=== PATIENT | female | born 1955 | race Caucasian/White ===

== ENCOUNTER 2019-11-22 11:32 | Emergency (ER) | payer MEDICARE, SELFPAY ==
--- NOTE | ~2019-11-22 | XR_ITS ---
EXAMINATION: XR femur LT min 2V EXAM DATE: 11/22/2019 13:26 INDICATION: Abnormal x-ray. TECHNIQUE: Left femur frontal and lateral projections of the proximal aspect, frontal and lateral pro jections of the lower aspect for review. There is no prior study for comparison. FINDINGS: There is chronic mildly expansile region in the midshaft of the left femur with regions o f sclerosis and some other regions of decreased density. This has nonaggressive appearance, but there is a bowed appearance to this leg likely result of chronic remodeling. There are no acute fractures identified. The soft tissue is unremarkable. IMPRESSION: Chronic left femoral mid shaft region with some bowing of the shaft, could be Paget's di sease and/or chronic bone infarction. Nonaggressive features. Reviewed, dictated and finalized at location A. EXAMINER IMPRESSION: Chronic left femoral mid shaft region with some bowing of the shaf t, could be Paget's disease and/or chronic bone infarction. Nonaggressive featu res.
--- NOTE | ~2019-11-22 | XR_ITS ---
XR ribs RT 2V DATE: 11/22/2019 12:35 INDICATION: Right rib pain TECHNIQUE: 3 views of right ribs COMPARISON: 11/06/2018 AP chest FINDINGS: No right rib fracture or bone destruction is evident. There is diffuse idiopathic skeletal hyperostosis of the thoracic spine. Diffuse osteopenia. IMPRESSION: Osteopenia Reviewed, dictated and finalized at location B. CASE MANAGEMENT IMPRESSION: Osteopenia
--- NOTE | ~2019-11-22 | XR_ITS ---
EXAMINATION: XR knee LT 2V EXAM DATE: 11/22/2019 12:35 INDICATION: No known recent injury provided at this time. Pain of the left knee. TECHNIQUE: Three projections of the left knee. There is no prior study for comparison. FINDINGS: No evidence osteochondral defect or joint body in the left knee joint. Bones are osteope yessi. Please note that osteopenia limits sensitivity for detecting fractures by radiographs. There is no joint effusion. Incompletely imaged region of sclerosis in the mid femur, could be a bone infarction but and/or Paget 's disease. Consider left femur x-ray for further evaluation. There is moderate left knee primary os teoarthritis. There may be some meniscal chondrocalcinosis. Scattered vascular calcifications. IMPRESSION: 1. Moderate left knee osteoarthritis. 2. Incompletely imaged left mid femoral expansile and mixed sclerotic lytic region. If patient had i ntramedullary yusra/gamma nail which was removed, could potentially explain appearance. Otherwise could be Paget's disease and/or bone infarction. Consider femur x-ray if patient has not had orthopedic joshua rdware. Reviewed, dictated and finalized at location A. RAL ECONOMIST IMPRESSION: 1. Moderate left knee osteoarthritis. 2. Incompletely imaged left mid femoral expansile and mixed sclerotic lytic re gion. If patient had intramedullary yusra/gamma nail which was removed, could pot entially explain appearance. Otherwise could be Paget's disease and/or bone inf arction. Consider femur x-ray if patient has not had orthopedic hardware.
--- NOTE | ~2019-11-22 | XR_ITS ---
EXAMINATION: XR hip LT 2V w AP pelvis EXAM DATE: 11/22/2019 12:35 INDICATION: No known recent injury provided at this time. Pain of the left hip. TECHNIQUE: Left hip frontal, crosstable lateral and 'frog-leg' projections for interpretation. Fronta l projection pelvis. Comparison is made to prior examination from 05/07/2015. FINDINGS: There is moderate to severe left hip osteoarthritis, moderate right hip osteoarthritis. Par tially imaged expansile mixed sclerotic and lytic region, could be Paget's disease and/or bone infarc t. Incompletely imaged. There are no acute fractures identified. There are arterial calcifications, a rteriosclerosis. IMPRESSION: 1. Moderate to severe left hip osteoarthritis. 2. Incompletely imaged left mid femoral expansile and mixed sclerotic lytic region. If patient had i ntramedullary yusra/gamma nail which was removed, could potentially explain appearance. Otherwise could be Paget's disease and/or bone infarction. Consider femur x-ray. Reviewed, dictated and finalized at location A. AL WORKER AIDE IMPRESSION: 1. Moderate to severe left hip osteoarthritis. 2. Incompletely imaged left mid femoral expansile and mixed sclerotic lytic re gion. If patient had intramedullary yusra/gamma nail which was removed, could pot entially explain appearance. Otherwise could be Paget's disease and/or bone inf arction. Consider femur x-ray.
[2019-11-22 11:50] VITALS: BP 149/66; PULSE 65; RESP 18; TEMP 36.7; O2SAT 95
[2019-11-22] MEDS: KETOROLAC 30 MG/ML VIAL (*BKC) IV PUSH (12:06)
--- NOTE | 2019-11-22 12:54 | ED.FALL ---
HPI - Fall General Chief Complaint: Fall Stated Complaint: ambulance Source: patient and EMS Limitations: no limitations History of Present Illness HPI Narrative: a 64-year-old female that presents after she fell down a couple of steps after she slipped on a patch of ice causing pain to her right rib area and to her left knee and hip. The patient was brought in by EMS currently rates her pain a 5/10, with no bruising or swelling noted no loss of consciousness no neck pain has good range of motion in her neck has good range of motion in her left knee and left hip although tender with palpation. There is no dizziness no shortness of breath no chest pain. MD complaint: fall Onset (ago): hour(s) Fall from: standing and down stairs (#) (2) Fall witnessed: no Place fall occurred: home Loss of consciousness: none Prolonged down time: no Symptoms prior to fall: other (slipped on patch of ICE) Location of injury: chest Location of injury - extremities: Left: knee Severity: moderate Severity scale (1-10): 5 Quality: dull Associated symptoms (after fall): denies Related Data Home Medications Medication Instructions Recorded Confirmed aspirin 81 mg tablet,delayed 81 mg PO DAILY 11/13/19 release carvedilol 3.125 mg tablet 3.125 mg PO Q12H 11/13/19 cilostazol 50 mg tablet 50 mg PO BID 11/13/19 gabapentin 300 mg capsule 300 mg PO DAILY 11/13/19 insulin glargine 100 unit/mL 40 unit SUB-Q .hs ml 11/13/19 subcutaneous solution isosorbide mononitrate 30 mg 30 mg PO DAILY 11/13/19 tablet,extended release 24 hr metformin 500 mg tablet 1,000 mg PO DAILY tablet 11/13/19 mirabegron 25 mg tablet,extended 25 mg PO DAILY 11/13/19 release 24 hr pantoprazole 40 mg granules 40 mg PO DAILY 11/13/19 delayed-release for susp in packet rosuvastatin 20 mg tablet 20 mg PO DAILY 11/13/19 venlafaxine 75 mg capsule,extended 150 mg PO TID cap 11/13/19 release 24 hr Allergies Allergy/AdvReac Type Severity Reaction Status Date / Time nitroglycerin [Nitromist] Allergy Intermediate unknown Verified 11/13/19 13:50 Review of Systems Review of Systems: All systems reviewed & are unremarkable except as noted in HPI and below PMFSH Past Medical History Medical History Anemia Bipolar disorder with depression CAD (coronary artery disease) Chronic GERD Chronic low back pain Encounter for removal of skin lesion Female stress incontinence Hyperlipidemia associated with type 2 diabetes mellitus Hypertension associated with diabetes Low bone mass Major depression, recurrent Major depressive episode Obesity, Class I, BMI 30-34.9 Type 2 diabetes mellitus Surgical History Surgical History History of appendectomy History of hysterectomy History of knee replacement History of repair of rotator cuff History of tonsillectomy Family History Family History Sister Family history of lymphoma Mother Hypertension Family history of type 2 diabetes mellitus Family history of coronary artery disease Mother Hypertension Family history of coronary artery disease Family history of type 2 diabetes mellitus Father Hypertension Family history of coronary artery disease Sister Family history of lymphoma Father Family history of coronary artery disease Hypertension Social History Social History Smoking status: Never smoker Alcohol intake: never Substance use: former Substance use type: crack/cocaine Other substance usage details: for about 1 year, patient quit on her own back in 2013 Additional living arrangements comments: Lives with adult Niece and her family Additional occupation/education comments: Disabled Gender identity (if verbalized by the patient): Female Spiritual care concern
[2019-11-22 14:05] VITALS: BP 160/70; PULSE 64; RESP 18; O2SAT 100
== END 2019-11-22 14:05 | disposition home or self-care (01) ==
PROVIDERS: Emergency Provider Emergency Medicine
DX: S86.912A Strain of unspecified muscle(s) and tendon(s) at lower leg level, left leg, initial encounter (principal); S23.41XA Sprain of ribs, initial encounter; I25.10 Atherosclerotic heart disease of native coronary artery without angina pectoris; K21.9 Gastro-esophageal reflux disease without esophagitis; E78.5 Hyperlipidemia, unspecified; I10 Essential (primary) hypertension; E11.9 Type 2 diabetes mellitus without complications; W10.9XXA Fall (on) (from) unspecified stairs and steps, initial encounter
CPT/HCPCS: 71100; 73502; 73521; 73552; 73560; 96374; 99282; 99284; J1885

== ENCOUNTER 2019-12-05 09:10 | Outpatient (CLI) | payer MEDICARE, SELFPAY ==
--- NOTE | ~2019-12-05 | CT_ITS ---
EXAMINATION: CT chest abdomen pelvis wo con EXAM DATE: 12/05/2019 09:37 INDICATION: Right-sided lateral chest pain and right upper abdominal pain. Bladder pain. Microscopic hematuria. TECHNIQUE: Spiral CT of the chest, abdomen and pelvis was performed without contrast. Axial, mcgee l and sagittal images were reviewed. Coronal maximum intensity pixel images of chest reviewed. The dose-length product (DLP) for this examination was 329.58 mGy-cm. The exposure was tailored accordin g to patient size (auto mA exposure control), and iterative reconstruction (ASIR) was used as additio nal dose reduction technique. Comparison is made to prior examination from 08/07/2019. FINDINGS: CHEST: The lungs are clear. There are no pleural or pericardial effusions. Tracheobronchial tree is patent. There is no mediastinal, hilar or axillary lymphadenopathy. There is no pneumothorax. Heart normal in size. There are likely coronary arterial stent or stents. Correlate with prior c ardiac history. ABDOMEN PELVIS: Liver and splenic granulomas. There is low-density left adrenal gland lesion measurin g 1.6 cm, adenoma. There is a subcentimeter right adrenal gland adenoma. Gallbladder is unremarkable. No biliary obstruction. There is bilateral renal arterial sclerosis. Difficult to completely exclu de punctate nephrolithiasis. No ureteral stones or hydronephrosis. The uterus is not identified and has likely been surgically resected. The bladder is unremarkable. There is no retroperitoneal or pe lvic lymphadenopathy. There is mild to moderate scattered arteriosclerotic disease. The appendix is not positively visualized. There is no pericecal inflammatory change to suggest appe ndicitis. There is moderate sigmoid predominant colonic diverticulosis. There is no adjacent inflamm atory change to suggest diverticulitis. The stomach and small bowel are unremarkable. There is expec marina amount of colonic stool. No free intraperitoneal gas. There are no osteoblastic or osteolytic lesions identified. IMPRESSION: 1. No acute thoracic or abdominal findings. 2. Colonic diverticulosis. 3. Adrenal adenomas. Reviewed, dictated and finalized at location A. FACTURING ASSEMBLER
== END 2019-12-05 09:11 | disposition home or self-care (01) ==
PROVIDERS: PCP Nurse Practitioner Family; Visit Provider Nurse Practitioner Family
DX: R31.29 Other microscopic hematuria (principal)
CPT/HCPCS: 71250; 74176

== ENCOUNTER 2020-07-09 13:37 | Outpatient (CLI) | payer MEDICARE, SELFPAY ==
[2020-07-09 13:54] LABS: Hematocrit 40.8 % (35.0-42.0); Hemoglobin 13.4 g/dL (11.7-13.8); Mean Corpuscular HGB Conc 32.8 g/dL (32.0-36.0); Mean Corpuscular Hemoglobin 30.5 pg (27.0-31.0); Mean Corpuscular Volume 92.9 fL (78.0-102.0); Mean Platelet Volume 11.5 fl (9.2-11.8); Platelet Count Result 212 K/mm3 (150-420); Red Blood Count 4.39 M/mm3 (4.20-5.40); Red Cell Distribution Width 12.4 % (11.6-14.4); White Blood Count 7.6 K/mm3 (4.8-10.8)
[2020-07-09 14:23] LABS: Hemoglobin A1C 6.4 % (<5.7)
[2020-07-09 14:34] LABS: Alanine Aminotransferase 49 U/L (14-59); Albumin Level 3.9 g/dL (3.4-5.0); Alkaline Phosphatase 157 U/L (46-116); Anion Gap 10 mmol/L (8-16); Aspartate Amino Transferase 24 U/L (15-37); Bilirubin,Total 0.5 mg/dL (0.00-1.00); Blood Urea Nitrogen 19 mg/dL (7-18); Calcium 8.9 mg/dL (8.5-10.1); Carbon Dioxide 24 mmol/L (21-32); Chloride 104 mmol/L (98-108); Cholesterol 131 mg/dL (0-200); Estimated Glomerular Filt Rate 33; Glucose 196 mg/dL (70-99); HDL Direct 92 mg/dL (40-60); LDL Cholesterol Calculated 30 mg/dL (<130); Osmolality Calculated 293 mOsm/kg (285-295); Potassium 4.1 mmol/L (3.5-5.1); Sodium 138 mmol/L (136-145); Total Protein 7.2 g/dL (6.4-8.2); Triglycerides 44 mg/dL (0-150)
== END 2020-07-09 13:38 | disposition home or self-care (01) ==
PROVIDERS: PCP Nurse Practitioner Family; Visit Provider Nurse Practitioner Family
DX: E11.59 Type 2 diabetes mellitus with other circulatory complications (principal); I10 Essential (primary) hypertension; D64.9 Anemia, unspecified
CPT/HCPCS: 36415; 80053; 80061; 83036; 85027

== ENCOUNTER 2020-08-12 10:10 | Outpatient (RCR) | payer MEDICARE, SELFPAY ==
--- NOTE | 2020-08-12 11:06 | PTOPEVAL ---
Thank you for referring Federica Bradford to [facility].? The patient is scheduled to be seen for therapy? ____x/week for ___ weeks. Please review, sign, date and return this plan of care DAVE. I agree with and certify that the following plan of care is medically necessary. Referring Physician Date Admitting Provider: Attending Provider: Stephanie Castaneda, COMMUNICATIONS FIELD TECHNICIAN Referring Provider: *PT Outpatient Evaluation Start: 08/12/20 10:10 Freq: Status: Active Protocol: Document 08/12/20 10:15 [facility] (Rec: 08/12/20 11:02 [facility] [id number]) Therapy Assessment Status Assessment Status Assessment Status Evaluation Outpatient Past Medical History Past Medical History Source of Past Medical History Patient Other Source of Past Medical History see patient intake form Cardiovascular History Hx Coronary Stent Yes Hx Hypercholesterolemia Yes Hx Hypertension Yes Hx Myocardial Infarction Yes Musculoskeletal History Hx Joint Replacement Yes: right knee Endocrine History Hx Diabetes Yes HEENT History Hx Tonsillectomy Yes Reproductive History Hx Hysterectomy Yes Hx Post Menopausal Yes Evaluation Information Problem Diagnosis s/p L TKA Onset 08/04/20 Additional Evaluation Detail LEFS = 91% functionally declined Subjective Information patient reports she underwent Query Text:As Reported By Patient/ L TKA on 08/04/20. she reports Family she has had the R one replaced in the past. she reports she was in the hospital until tuesday evening , then went back tuesday evening due to a fall at home. she then stayed in the hospital for another few days. she reports her fall caused some bleeding at the sight of the surgery. she reports she fell with her walker. she reports she did not have home health. she reports she still has a lot of pain/soreness in the L knee. she reports she returns to the MD this tuesday for staple removal. Prior Level of Function Comments Additional Prior Level of Function patient reports her L knee was Comments full of arthritis and she had a shifted knee cap. she reports
--- NOTE | 2020-09-05 11:36 | PTOPEVAL ---
Thank you for referring Federica Bradford to [facility] [place].? The patient is scheduled to be seen for therapy? ____x/week for ___ weeks. Please review, sign, date and return this plan of care DAVE. I agree with and certify that the following plan of care is medically necessary. Referring Physician Date Admitting Provider: Attending Provider: Stephanie Castaneda, HYDRAULIC LIFT DRIVER Referring Provider: *PT Outpatient Evaluation Start: 08/12/20 10:10 Freq: Status: Active Protocol: Document 09/05/20 10:50 [facility] (Rec: 09/05/20 11:35 [facility] [id number]) Therapy Assessment Status Assessment Status Assessment Status Re-evaluation Outpatient Past Medical History Past Medical History Source of Past Medical History Patient Other Source of Past Medical History see patient intake form Cardiovascular History Hx Coronary Stent Yes Hx Hypercholesterolemia Yes Hx Hypertension Yes Hx Myocardial Infarction Yes Musculoskeletal History Hx Joint Replacement Yes: right knee Endocrine History Hx Diabetes Yes HEENT History Hx Tonsillectomy Yes Reproductive History Hx Hysterectomy Yes Hx Post Menopausal Yes Evaluation Information Problem Diagnosis s/p L TKA Subjective Information patient reports she still joshua Query Text:As Reported By Patient/ pain in the L knee. she also Family reports she is still tight in the L knee in extension. however, she reports at times she is able to get it completely straight at home. Pain Assessment Timing of Pain Assessment Timing of Pain Assessment Assessment Pain Scale Pain Scale Used Numeric (1 - 10) Self Report Pain Assessment Left Knee(s) Reported Pain Level 4 Greatest Pain Intensity 5 Pain Score Pain Score 4: Self Report Interventions Used Interventions Used By Clinicians Activity or ADL's,Compression Pump,Elevation,Exercise,Ice Lower Extremity Range of Motion General Lower Extremity Range of Motion Gross Lower Extremity Range of Motion supine L knee arom extension = Comments -15 degrees. supine L knee prom extension = -11 degrees. supine L knee arom flexion = 125 degrees. Lower Extremity Muscle Strength Testing Hip Strength Left Hip Flexion Strength 4- Good - Right Hip Flexion Strength 4 Good Knee Strength Left Knee Flexion Strength 4+ Good + Knee Extension Strength 4 Good Right Knee Flexion Strength
--- NOTE | 2020-09-10 06:47 | PCPTNOTE ---
Mrs. Bradford has attended 13 treatment sessions. In this time she has demonstrated excellent progress in regards to function and strength. Her left knee flexion angle has improved to 130 degrees. She continues to have difficulty with attaining adequate knee extension and remains with a 12 degree contracture post Rx on this date. Exercise in the clinic has consisted of aggressive passive stretching and mobilization techniques promoting knee extension, as well as static progressive techniques such as prone hangs and heel prop for duration of 10 minutes of greater. The importance of daily performance of her HEP has been stressed to the pt., especially exercise that promotes extension of the left knee. Despite thoroughly educating pt., she continues to report lack of compliance with all extension exercise at home due to pain. She currently has 5 remianing sessions on her POC and reccommend continued treatment focusing on aggressive manual techniques and exercise promoting improved strength and mobility of the left knee. Thank you for the referral of Mrs. Bradford and please call me with any questions. Jeremiah Rosado, MPT
== END 2020-10-21 08:55 | disposition home or self-care (01) ==
LOC: CHSPT 10:10
PROVIDERS: PCP Family Medicine; Visit Provider Nurse Practitioner Family
DX: M17.12 Unilateral primary osteoarthritis, left knee (principal)
CPT/HCPCS: 97016; 97110; 97140; 97161; 97530

== ENCOUNTER 2021-06-25 14:35 | Outpatient (CLI) | payer MEDICARE, SELFPAY ==
[2021-06-25 14:58] LABS: Basophils Absolute Auto 0.04 K/mm3 (0.00-0.10); Basophils Percent Auto 0.6 % (0.0-1.0); Eosinophils Absolute Auto 0.04 K/mm3 (0.02-0.50); Eosinophils Percent Auto 0.6 % (1.0-6.0); Hematocrit 43.4 % (35.0-42.0); Immature Granulocyte Absolute 0.03 K/mm3 (0.00-0.00); Immature Granulocyte Percent A 0.4 % (0.0-0.0); Lymphocytes Absolute Auto 1.11 K/mm3 (1.10-4.50); Lymphocytes Percent Auto 16.2 % (18.0-42.0); Mean Corpuscular HGB Conc 34.6 g/dL (32.0-36.0); Mean Corpuscular Hemoglobin 30.1 pg (27.0-31.0); Mean Platelet Volume 11.4 fl (9.2-11.8); Monocytes Absolute Auto 0.48 K/mm3 (0.10-0.90); Neutrophils Absolute Auto 5.2 K/mm3 (1.7-7.2); Neutrophils Percent Auto 75.2 % (50.0-70.0); Platelet Count Result 215 K/mm3 (150-420); Red Blood Count 4.99 M/mm3 (4.20-5.40); White Blood Count 6.9 K/mm3 (4.8-10.8)
[2021-06-25 15:38] LABS: Alanine Aminotransferase 32 U/L (14-59); Albumin Level 3.8 g/dL (3.4-5.0); Alkaline Phosphatase 86 U/L (46-116); Anion Gap 10 mmol/L (8-16); Aspartate Amino Transferase 19 U/L (15-37); Bilirubin,Total 0.6 mg/dL (0.00-1.00); Blood Urea Nitrogen 13 mg/dL (7-18); Calcium 9.2 mg/dL (8.5-10.1); Carbon Dioxide 28 mmol/L (21-32); Chloride 103 mmol/L (98-108); Cholesterol 150 mg/dL (0-200); Estimated Glomerular Filt Rate 49; Glucose 161 mg/dL (70-99); HDL Direct 65 mg/dL (40-60); LDL Cholesterol Calculated 53 mg/dL (<130); Osmolality Calculated 295 mOsm/kg (285-295); Potassium 4.3 mmol/L (3.5-5.1); Sodium 141 mmol/L (136-145); Total Protein 7.1 g/dL (6.4-8.2); Triglycerides 158 mg/dL (0-150)
[2021-06-25 17:09] LABS: CRP < 0.2 mg/dL (0.0-0.9)
== END 2021-06-25 14:36 | disposition home or self-care (01) ==
PROVIDERS: PCP Nurse Practitioner Family; Visit Provider Nurse Practitioner Family
DX: E11.69 Type 2 diabetes mellitus with other specified complication (principal); E78.5 Hyperlipidemia, unspecified; I10 Essential (primary) hypertension; Z00.00 Encounter for general adult medical examination without abnormal findings; E11.59 Type 2 diabetes mellitus with other circulatory complications; M94.0 Chondrocostal junction syndrome [Tietze]
CPT/HCPCS: 36415; 80053; 80061; 83036; 85025; 86140

== ENCOUNTER 2021-07-14 12:59 | Outpatient (RCR) | payer MEDICARE, SELFPAY ==
--- NOTE | 2021-07-14 14:01 | PTOPEVAL ---
Thank you for referring Federica Bradford to [facility].? The patient is scheduled to be seen for therapy? ____x/week for ___ weeks. Please review, sign, date and return this plan of care DAVE. I agree with and certify that the following plan of care is medically necessary. Referring Physician Date Admitting Provider: Attending Provider: Marilynn Ramírez NP Referring Provider: *PT Outpatient Evaluation Start: 07/14/21 12:41 Freq: Status: Active Protocol: Document 07/14/21 12:41 [facility] (Rec: 07/14/21 14:01 [facility] [id number]) Therapy Assessment Status Assessment Status Assessment Status Evaluation Outpatient Past Medical History Cardiovascular History Hx Coronary Stent Yes Hx Hypercholesterolemia Yes Hx Hypertension Yes Hx Myocardial Infarction Yes Musculoskeletal History Hx Joint Replacement Yes: right knee Endocrine History Hx Diabetes Yes HEENT History Hx Tonsillectomy Yes Reproductive History Hx Post Menopausal Yes Evaluation Information Problem Diagnosis breast/arm pain Onset 06/23/21 Subjective Information Patient states that she was Query Text:As Reported By Patient/ laying down and got a shooting Family pain from the left side of the chest to the right and into the arm. Patient states the pain has been constant ever since. She is unable to lay on the R side at this time . She states that the muscle relaxers do not help, only the lidocaine patches work. She states when she takes off the patches the area is really sore. Patient states that she has difficulty with lifting items, writing, and doing anything with her arm. Patient denies radicular symptoms, but states that the pain on the underarm is a scratching sensation. Patient states that her goal for therapy is to get ride of the pain. Prior Level of Function Activity Level (Last 3 Months) Occupation retired Hand Dominance Right Activity of Daily Living Ability Independent Indoor/Home Mobility Independent Community Mobility Independent Stairs Ability Independent
--- NOTE | 2021-08-14 15:48 | PTOPEVAL ---
Thank you for referring Federica Bradford to [facility].? The patient is scheduled to be seen for therapy? ____x/week for ___ weeks. Please review, sign, date and return this plan of care DAVE. I agree with and certify that the following plan of care is medically necessary. Referring Physician Date Admitting Provider: Attending Provider: Marilynn Ramírez NP Referring Provider: *PT Outpatient Evaluation Start: 07/14/21 12:41 Freq: Status: Active Protocol: Document 08/14/21 14:45 ACR (Rec: 08/14/21 15:47 ACR [id number]) Therapy Assessment Status Assessment Status Assessment Status Discharge Outpatient Past Medical History Cardiovascular History Hx Coronary Stent Yes Hx Hypercholesterolemia Yes Hx Hypertension Yes Hx Myocardial Infarction Yes Musculoskeletal History Hx Joint Replacement Yes: right knee Endocrine History Hx Diabetes Yes HEENT History Hx Tonsillectomy Yes Reproductive History Hx Post Menopausal Yes Evaluation Information Problem Diagnosis breast/arm pain Onset 06/23/21 Subjective Information The ptient reports that since Query Text:As Reported By Patient/ beginning therapy she has been Family feeling a lot better. She states she ran out of lidocaine patches and does not have any pain at all. She states that she does not have much pain, but she still has difficulty with lifting items because of weakness. Pain Assessment Timing of Pain Assessment Timing of Pain Assessment Assessment Pain Scale Pain Scale Used Numeric (1 - 10) Self Report Pain Assessment Right Arm(s) Reported Pain Level 0 Greatest Pain Intensity 8 Right Chest Reported Pain Level 0 Greatest Pain Intensity 8 Pain Score Pain Score 0,0: Self Report Interventions Used Interventions Used By Clinicians Activity or ADL's,Exercise Upper Extremity Muscle Strength Testing Scapular/Shoulder Right Shoulder Flexion Strength 4+ Good + Shoulder Abduction Strength 5 Normal Shoulder Medial Rotation Strength 5 Normal Shoulder Lateral Rotation Strength 4+ Good + Left Shoulder Flexion Strength 5 Normal Shoulder Abduction Strength 5 Normal Shoulder Medial Rotation Strength 5 Normal Shoulder Lateral Rotation Strength 5 Normal Elbow/Forearm Right Elbow Flexion Strength 5 Normal Elbow Extension Strength 5 Normal Left Elbow Flexion Strength 5 Normal
== END 2021-08-14 16:27 | disposition home or self-care (01) ==
LOC: CHSPT 12:59
PROVIDERS: PCP Nurse Practitioner Family; Visit Provider Nurse Practitioner Family
DX: M94.0 Chondrocostal junction syndrome [Tietze] (principal)
CPT/HCPCS: 97110; 97161

== ENCOUNTER 2021-09-15 13:41 | Outpatient (CLI) | payer MEDICARE, SELFPAY ==
--- NOTE | ~2021-09-15 | XR_ITS ---
EXAMINATION: XR abdomen obstructive series DATE: 09/15/2021 14:34 INDICATION: Constipation. TECHNIQUE: Upright and supine views of the abdomen on 3 radiographs were obtained. COMPARISON: CT abdomen and pelvis 09/15/2021 FINDINGS: There are no dilated loops of bowel. There is a moderate volume of stool in the colon. No f ree intraperitoneal gas. IMPRESSION: 1. Normal bowel gas pattern. Reviewed, dictated and finalized at location A. Y SPECIALIST
[2021-09-15 14:16] LABS: Basophils Absolute Auto 0.03 K/mm3 (0.00-0.10); Basophils Percent Auto 0.2 % (0.0-1.0); Eosinophils Absolute Auto 0.01 K/mm3 (0.02-0.50); Eosinophils Percent Auto 0.1 % (1.0-6.0); Hemoglobin 15.4 g/dL (11.7-13.8); Immature Granulocyte Absolute 0.03 K/mm3 (0.00-0.00); Immature Granulocyte Percent A 0.2 % (0.0-0.0); Lymphocytes Absolute Auto 1.33 K/mm3 (1.10-4.50); Lymphocytes Percent Auto 10.4 % (18.0-42.0); Mean Corpuscular Hemoglobin 30.4 pg (27.0-31.0); Mean Corpuscular Volume 86.8 fL (78.0-102.0); Mean Platelet Volume 11.6 fl (9.2-11.8); Monocytes Absolute Auto 0.98 K/mm3 (0.10-0.90); Monocytes Percent Auto 7.7 % (2.0-11.0); Neutrophils Absolute Auto 10.4 K/mm3 (1.7-7.2); Neutrophils Percent Auto 81.4 % (50.0-70.0); Platelet Count Result 228 K/mm3 (150-420); Red Blood Count 5.07 M/mm3 (4.20-5.40); Red Cell Distribution Width 11.7 % (11.6-14.4); White Blood Count 12.8 K/mm3 (4.8-10.8)
[2021-09-15 14:20] LABS: Add Urine Microscopic? YES; Appearance Urine Cloudy (Clear); Bilirubin Urine Negative (Negative); Blood Urine 1+ (Negative); Color Urine Yellow (Yellow); Glucose Urine UA Negative (Negative); Ketones Urine Negative (Negative); Leukocyte Esterase Ur Negative LEU/UL (Negative); Nitrate Urine Negative (Negative); Protein Urine 2+ (Negative); pH Urine 7.5 (5.0-8.0)
[2021-09-15 14:27] LABS: Squamous Epithelial Cell Urine Many /hpf (Few)
[2021-09-15 14:28] LABS: Bacteria Urine 4+ /hpf
[2021-09-15 14:41] LABS: Alanine Aminotransferase 25 U/L (14-59); Alkaline Phosphatase 90 U/L (46-116); Amylase 69 U/L (25-115); Anion Gap 14 mmol/L (8-16); Aspartate Amino Transferase 14 U/L (15-37); Bilirubin,Total 0.9 mg/dL (0.00-1.00); Blood Urea Nitrogen 50 mg/dL (7-18); Calcium 9.2 mg/dL (8.5-10.1); Carbon Dioxide 29 mmol/L (21-32); Chloride 87 mmol/L (98-108); Estimated Glomerular Filt Rate 14; Glucose 291 mg/dL (70-99); Lipase 420 U/L (73-393); Magnesium 2.4 mg/dL (1.8-2.4); Osmolality Calculated 294 mOsm/kg (285-295); Potassium 2.8 mmol/L (3.5-5.1)
[2021-09-15 14:49] LABS: Sodium 130 mmol/L (136-145)
[2021-09-15] MEDS: SODIUM CHLORIDE 0.9% IV 1,000 ML 500 ML IVPB (15:30)
--- NOTE | 2021-09-15 16:23 | PC.NURSE ---
Patient with NS infusing at 500 ml/hr to #22 gauge IV in right hand. Patient tolerating well. Received call from Marilynn Ramírez NP to take patient to ER due to finding new onset kidney failure. Patient taken to ER, report given to Jeannie ER nurse.
== END 2021-09-15 13:42 | disposition home or self-care (01) ==
PROVIDERS: PCP Nurse Practitioner Family; Visit Provider Nurse Practitioner Family
DX: R11.2 Nausea with vomiting, unspecified (principal); E86.0 Dehydration; K59.00 Constipation, unspecified
CPT/HCPCS: 36415; 74019; 80053; 81001; 82150; 83690; 83735; 85025; 96360; 96361; J7030

== ENCOUNTER 2021-09-15 16:03 | Emergency (ER) | payer MEDICARE, SELFPAY ==
--- NOTE | ~2021-09-15 | CT_ITS ---
EXAMINATION: CT abdomen pelvis wo con EXAM DATE: 09/15/2021 16:57 INDICATION: Constipation n/v with constipation. No bowel movement x 1 wk . TECHNIQUE: Spiral CT of the abdomen and pelvis was performed without contrast. Axial, coronal and s agittal images of the abdomen and pelvis were reviewed. The dose-length product (DLP) for this exami nation was 641.97 mGy-cm. The exposure was tailored according to patient size (auto mA exposure cont rol), and iterative reconstruction (ASIR) was used as additional dose reduction technique. Comparison is made to prior examination from 12/05/2019. FINDINGS: Scattered liver and splenic granulomata. There are bilateral adrenal adenomas, larger on th e left at 1.8 cm. Pancreas unremarkable. Gallbladder is unremarkable. No biliary obstruction. Ther e is no nephrolithiasis or hydronephrosis. Possible punctate right superior calyceal stone. The uteru s is not identified and has likely been surgically resected. The bladder is unremarkable. There is no retroperitoneal or pelvic lymphadenopathy. There is mild to moderate scattered arteriosclerotic disease. The appendix is not positively visualized. There is no pericecal inflammatory change to suggest appe ndicitis. There is mild to moderate scattered colonic diverticulosis. There is no adjacent inflammat ory change to suggest diverticulitis. The stomach and small bowel are unremarkable. There is expect ed amount of colonic stool. No free intraperitoneal gas. The heart is normal in size. There are no pericardial or pleural effusions. The lung bases are unremarkable. There are no osteoblastic or osteolytic lesions identified. IMPRESSION: 1. Expected amount of colonic stool. 2. Mild to moderate colonic diverticulosis. 3. Adrenal adenomas. Reviewed, dictated and finalized at location A. CLAMP OPERATOR
[2021-09-15 16:19] VITALS: BP 104/90; PULSE 71; RESP 20; TEMP 36.2; O2SAT 100
[2021-09-15] MEDS: SODIUM CHLORIDE 0.9% IV 500 ML 999 ML IV CONT (16:57)
[2021-09-15 17:30] VITALS: BP 124/64; PULSE 64; RESP 20; O2SAT 100
[2021-09-15 17:31] LABS: Add Urine Microscopic? YES; Appearance Urine Sl Cloudy (Clear); Bilirubin Urine Negative (Negative); Blood Urine 3+ (Negative); Color Urine Light Yellow (Yellow); Glucose Urine UA Negative (Negative); Ketones Urine Negative (Negative); Leukocyte Esterase Ur Negative (Negative); Nitrate Urine Negative (Negative); Protein Urine 2+ (Negative); Specific Grav Ur 1.025 (1.010-1.020)
[2021-09-15 17:38] LABS: Basophils Absolute Auto 0.02 K/mm3 (0.00-0.10); Basophils Percent Auto 0.2 % (0.0-1.0); Hemoglobin 14.5 g/dL (11.7-13.8); Immature Granulocyte Absolute 0.03 K/mm3 (0.00-0.00); Immature Granulocyte Percent A 0.3 % (0.0-0.0); Lymphocytes Absolute Auto 1.49 K/mm3 (1.10-4.50); Lymphocytes Percent Auto 14.7 % (18.0-42.0); Mean Corpuscular HGB Conc 33.7 g/dL (32.0-36.0); Mean Corpuscular Hemoglobin 29.4 pg (27.0-31.0); Mean Corpuscular Volume 87.2 fL (78.0-102.0); Mean Platelet Volume 11.7 fl (9.2-11.8); Monocytes Absolute Auto 0.85 K/mm3 (0.10-0.90); Monocytes Percent Auto 8.4 % (2.0-11.0); Neutrophils Absolute Auto 7.7 K/mm3 (1.7-7.2); Neutrophils Percent Auto 76.4 % (50.0-70.0); Platelet Count Result 194 K/mm3 (150-420); Red Blood Count 4.93 M/mm3 (4.20-5.40); Red Cell Distribution Width 11.8 % (11.6-14.4); White Blood Count 10.1 K/mm3 (4.8-10.8)
[2021-09-15 17:49] LABS: Amorphous Sediment Urine Moderate; Bacteria Urine Trace /hpf; RBC Urine 0-2 /hpf (0-2); Squamous Epithelial Cell Urine Few /hpf (Few); WBC Urine 0-3 /hpf (0-3)
[2021-09-15 17:54] LABS: Alanine Aminotransferase 19 U/L (14-59); Albumin Level 3.7 g/dL (3.4-5.0); Alkaline Phosphatase 81 U/L (46-116); Anion Gap 11 mmol/L (8-16); Aspartate Amino Transferase 13 U/L (15-37); Bilirubin,Total 0.8 mg/dL (0.00-1.00); Blood Urea Nitrogen 51 mg/dL (7-18); Calcium 8.6 mg/dL (8.5-10.1); Carbon Dioxide 31 mmol/L (21-32); Chloride 87 mmol/L (98-108); Estimated CRCL calculation 18 ml/min; Estimated Glomerular Filt Rate 17; Glucose 215 mg/dL (70-99); Osmolality Calculated 287 mOsm/kg (285-295); Sodium 129 mmol/L (136-145); Total Protein 7.6 g/dL (6.4-8.2)
--- NOTE | 2021-09-15 18:24 | ED.NAVMDI ---
HPI - Nausea/Vomiting/Diarrhea General Chief complaint: Nausea/Vomiting/Diarrhea Stated complaint: kidney failure Time Seen by Provider: 09/15/21 16:05 Source: patient and RN notes reviewed Mode of arrival: wheelchair Limitations: no limitations History of Present Illness HPI Narrative: Pt had IV resuscitation but was sent to ED for work-up and review. MD elicited complaint: nausea and vomiting Onset (ago): day(s) (2) Description of vomiting: watery Associated nausea: Yes Location of pain: none Pain consistency: other (pt was pain-free in the ED.) Severity: mild Exacerbating factors: none Relieving factors: none Associated symptoms: malaise Related Data Home Medications Medication Instructions Recorded Confirmed aspirin 81 mg tablet,delayed 81 mg PO DAILY 11/13/19 09/15/21 release lisinopril 10 mg PO DAILY 09/15/21 09/15/21 rosuvastatin 40 mg PO DAILY 09/15/21 09/15/21 Allergies Allergy/AdvReac Type Severity Reaction Status Date / Time nitroglycerin [Nitromist] Allergy Intermediate unknown Verified 09/15/21 16:25 Review of Systems Review of Systems: All systems reviewed & are unremarkable except as noted in HPI and below PMFSH Past Medical History Medical History Anemia Bipolar disorder with depression CAD (coronary artery disease) Chronic GERD Chronic low back pain Dysuria Encounter for removal of skin lesion Female stress incontinence Hyperlipidemia associated with type 2 diabetes mellitus Hypertension associated with diabetes Low bone mass Major depression, recurrent Major depressive episode Microscopic hematuria Obesity, Class I, BMI 30-34.9 Overweight (BMI 25.0-29.9) Screening for malignant neoplasm of colon Type 2 diabetes mellitus Surgical History Surgical History History of appendectomy History of cataract removal with insertion of prosthetic lens bilateral History of hysterectomy History of knee replacement History of repair of rotator cuff History of tonsillectomy Family History Family History Sister Family history of lymphoma Mother Hypertension Family history of type 2 diabetes mellitus Family history of coronary artery disease Mother Hypertension Family history of coronary artery disease Family history of type 2 diabetes mellitus Father Hypertension Family history of coronary artery disease Sister Family history of lymphoma Father Family history of coronary artery disease Hypertension Social History Social History Smoking status: Never smoker Alcohol intake: never Substance use: former Substance use type: crack/cocaine Other substance usage details: for about 1 year, patient quit on her own back in 2013 Additional living arrangements comments: Lives with adult Niece and her family Additional occupation/education comments: Disabled Gender identity (if verbalized by the patient): Female Spiritual care concerns: No Exam Const: General: no acute distress and alert Nutritional Appearance: well nourished Orientation/consciousness: patient oriented x3 Limitations: no limitations HENMT: Ears: external ears normal and TM's normal bilaterally General nose exam: Normal external nose present and Normal nares present Mouth: Yes lip normal and Yes moist mucous membranes Teeth and gingiva: dentition normal Throat: posterior oropharynx normal Eyes: Cornea: corneas normal Pupils: Equal, round and reactive pupils present EOM: EOMs intact bilaterally Neck: Neck: normal visual inspection and no lymphadenopathy Chest: Chest palpation & inspection: normal inspection of the chest Resp: Effort & Inspection: normal respiratory effort Auscultation: clear to auscultation bilaterally Cardio: Rate: regular rate Rhythm: regula
[2021-09-15] MEDS: POTASSIUM CHLORIDE 20 MEQ TABLET 40 MEQ PO (18:44)
[2021-09-15 18:45] VITALS: BP 142/84; PULSE 68; RESP 20; O2SAT 98
[2021-09-15] MEDS: ACETAMINOPHEN 500 MG TABLET 1000 MG (18:58)
== END 2021-09-15 19:00 | disposition home or self-care (01) ==
PROVIDERS: Emergency Provider Emergency Medicine; PCP Nurse Practitioner Family
DX: E87.6 Hypokalemia (principal); I12.9 Hypertensive chronic kidney disease with stage 1 through stage 4 chronic kidney disease, or unspecified chronic kidney disease; N18.2 Chronic kidney disease, stage 2 (mild); E11.22 Type 2 diabetes mellitus with diabetic chronic kidney disease; I25.10 Atherosclerotic heart disease of native coronary artery without angina pectoris; E78.5 Hyperlipidemia, unspecified; K21.9 Gastro-esophageal reflux disease without esophagitis; M54.50 Low back pain, unspecified; G89.29 Other chronic pain; F31.9 Bipolar disorder, unspecified; Z96.659 Presence of unspecified artificial knee joint
CPT/HCPCS: 36415; 74176; 80053; 81001; 85025; 96360; 96361; 96374; 96375; 99283; 99284; A9270; J7040

== ENCOUNTER 2021-11-06 14:41 | Outpatient (CLI) | payer MEDICARE, SELFPAY ==
[2021-11-06 16:08] LABS: Alanine Aminotransferase 34 U/L (14-59); Albumin Level 3.8 g/dL (3.4-5.0); Alkaline Phosphatase 117 U/L (46-116); Anion Gap 8 mmol/L (8-16); Aspartate Amino Transferase 20 U/L (15-37); Bilirubin,Total 0.7 mg/dL (0.00-1.00); Blood Urea Nitrogen 24 mg/dL (7-18); Calcium 9.2 mg/dL (8.5-10.1); Carbon Dioxide 27 mmol/L (21-32); Chloride 100 mmol/L (98-108); Estimated Glomerular Filt Rate 34; Glucose 323 mg/dL (70-99); Osmolality Calculated 296 mOsm/kg (285-295); Potassium 4.9 mmol/L (3.5-5.1); Sodium 135 mmol/L (136-145); Total Protein 7.3 g/dL (6.4-8.2)
== END 2021-11-06 14:42 | disposition home or self-care (01) ==
LOC: CHSLAB 14:42
PROVIDERS: PCP Family Medicine; Visit Provider Family Medicine
DX: E11.9 Type 2 diabetes mellitus without complications (principal)
CPT/HCPCS: 36415; 80053; 83036

== ENCOUNTER 2021-11-26 12:39 | Outpatient (CLI) | payer MEDICARE, SELFPAY ==
[2021-11-28 06:23] LABS: Total Volume 24 Hour Urine 600 ml
[2021-12-02 16:29] LABS: Albumin 34 %; Creat 24 Hr 0.47 g/24 h (0.50-2.15); Measured Lambda Chains 4.07 mg/dL (<2.00); Pro/Creat Ratio 1268 mg/g creat (<=114); Total Kappa Chains 60 mg/24 h; Total Lambda Chains 24.42 mg/24 h
[2021-12-11 12:08] LABS: Protein,total, 24 Hr Ur 594 mg/24h
== END 2021-11-26 12:40 | disposition home or self-care (01) ==
LOC: CHSLAB 12:40
PROVIDERS: PCP Family Medicine; Visit Provider Internal Medicine Nephrology
DX: N18.32 Chronic kidney disease, stage 3b (principal)
CPT/HCPCS: 81050; 84540; 86335

== ENCOUNTER 2021-12-01 11:51 | Outpatient (CLI) | payer MEDICARE, SELFPAY ==
--- NOTE | ~2021-12-01 | US_ITS ---
EXAMINATION: US retroperitoneal comp DATE: 12/01/2021 12:08 INDICATION: Stage III chronic kidney disease TECHNIQUE: Multiple ultrasound grayscale images of the kidneys were obtained. COMPARISON: None. FINDINGS: The right kidney measures 11.9 x 5.2 x 6.2 cm. The left kidney measures 10.4 x 4.7 x 4.4 cm. The kidn eys demonstrate normal echogenicity. There is no hydronephrosis in either kidney. No stones identifi ed. The bladder is partially decompressed which limits evaluation. IMPRESSION: 1. Normal kidneys without hydronephrosis. Reviewed, dictated and finalized at location A. RAL OFFICE MECHANIC
== END 2021-12-01 11:52 | disposition home or self-care (01) ==
LOC: CHSIMG 11:52
PROVIDERS: PCP Family Medicine; Visit Provider Internal Medicine Nephrology
DX: N18.32 Chronic kidney disease, stage 3b (principal)
CPT/HCPCS: 76770

== ENCOUNTER 2022-03-11 12:46 | Outpatient (CLI) | payer MEDICARE, SELFPAY ==
--- NOTE | ~2022-03-11 | DEXA_ITS ---
Bone Density Report Name: GENNA VALLEJO Age: 66 Sex: Female Ethnicity: White Date of : 1955 Indication: postmenopausal; screening for osteoporosis; parental hip fracture; height loss; hysterectomy; Referring Provider: Marilynn Ramírez Study: Bone densitometry was performed. Exam Date: March 11, 2022 Accession number: [id number] Bone Density: Region BMD T-score Z-score Classification AP Spine(L1-L4) 1.098 0.5 2.4 Normal Femoral Neck (Left) 0.793 -0.5 1.1 Normal Total Hip (Left) 0.825 -1.0 0.4 Normal Femoral Neck (Right) 0.703 -1.3 0.3 Osteopenia Total Hip (Right) 0.808 -1.1 0.2 Osteopenia Femoral Neck Mean 0.748 -0.9 0.7 Normal Total Hip Mean 0.817 -1.0 0.3 Normal World Health Organization criteria for BMD impression classify patients as: Normal (T-score at or above -1.0), Osteopenia (T-score between -1.0 and -2.5), or Osteoporosis (T-score at or below -2.5). 10-year Fracture Risk(1): Major Osteoporotic Fracture 15% Hip Fracture 1.1% Reported Risk Factors: [place] (), Neck BMD=0.703, BMI=32.6, parental fracture (1) FRAX(R) Version 3.08. Fracture probability calculated for an untreated patient. Fracture probability may be lower if the patient has received treatment. Clinical Information Provided by Patient: Parent has had a hip fracture Has used the following medications: Vitamin D Has the following medical conditions: Hysterectomy Patient maximum height was 63 Menopause Age: 50 No regular weight bearing exercise Does not regularly consume dairy products Drinks caffeinated beverages Onset of menses at age 12 Number of children 3 Impression: The patient has low bone mass, based on the Right Femoral Neck T-score. The patient has risk factors, including: parental hip fracture. Discussion: BONE DENSITY IS LOW AT ONE OR MORE SKELETAL SITES. This patient's lowest T-score is low at one or more skeletal sites. It meets the World Health Organization's (WHO) criteria for ?low bone mass? (T-score between -1.0 and -2.5). The patient's 10-year risk of fracture as calculated by FRAX is less than the threshold where pharmacological therapy is recommended by the National Osteoporosis Foundation (NOF). However, all treatment decisions require clinical judgment and consideration of individual patient factors, including patient preferences, comorbidities, previous drug use, risk factors not captured in the FRAX model (e.g., frailty, falls, vitamin D deficiency, increased bone turnover, interval significant decline in bone density) and possible under or overestimation of fracture risk by FRAX. The patient should follow a healthful lifestyle (good nutrition with adequate calcium and vitamin D, and appropriate weight-bearing exercise). Follow-Up: Consider re
--- NOTE | ~2022-03-11 | MM_ITS ---
EXAMINATION: MM screening pancho BI w dahlia HISTORY: Screening mammogram TECHNIQUE: Craniocaudal and mediolateral oblique 3-D tomosynthesis images were obtained and synthetic 2-D images were generated. CAD analysis was submitted and interpreted. COMPARISON: No prior mammogram is available for comparison at this institution. BREAST PARENCHYMAL COMPOSITION: The breasts are almost entirely fatty. FINDINGS: There is no evidence of suspicious mass, calcification, or architectural distortion to sugg est malignancy in either breast. There has been no suspicious interval change. IMPRESSION: 1. No mammographic evidence of malignancy. 2. Recommend routine screening mammography in one year. BI-RADS Category 1: Negative Reviewed, dictated and finalized at location A.
[2022-03-11 13:56] LABS: Creatinine Urine 118.52 mg/dL (40-278)
[2022-03-11 13:59] LABS: MALB Creatinine Ratio 152.1 mg/g (0-30); Microalbumin Urine Random 180.3 mg/L
[2022-03-11 14:03] LABS: Hemoglobin A1C 6.3 % (<5.7)
[2022-03-15 04:08] LABS: Hepatitis C Signal to Cutoff 0.01 ratio (<1.00); Hepatitis C Virus Antibody Nonreactive (Nonreactive)
== END 2022-03-11 12:47 | disposition home or self-care (01) ==
LOC: CHSIMG 12:50
PROVIDERS: Nurse Practitioner Family; PCP Family Medicine; Visit Provider Nurse Practitioner Family
DX: M81.0 Age-related osteoporosis without current pathological fracture (principal); Z12.31 Encounter for screening mammogram for malignant neoplasm of breast; E11.9 Type 2 diabetes mellitus without complications; Z11.59 Encounter for screening for other viral diseases
CPT/HCPCS: 36415; 77063; 77067; 77080; 82043; 83036

== ENCOUNTER 2022-03-22 09:05 | Outpatient (CLI) | payer MEDICARE, SELFPAY ==
[2022-03-22 09:31] LABS: Basophils Absolute Auto 0.03 K/mm3 (0.00-0.10); Basophils Percent Auto 0.5 % (0.0-1.0); Eosinophils Absolute Auto 0.06 K/mm3 (0.02-0.50); Eosinophils Percent Auto 1.1 % (1.0-6.0); Hematocrit 38.7 % (35.0-42.0); Hemoglobin 12.9 g/dL (11.7-13.8); Immature Granulocyte Absolute 0.02 K/mm3 (0.00-0.00); Immature Granulocyte Percent A 0.4 % (0.0-0.0); Lymphocytes Absolute Auto 1.85 K/mm3 (1.10-4.50); Lymphocytes Percent Auto 32.9 % (18.0-42.0); Mean Corpuscular HGB Conc 33.3 g/dL (32.0-36.0); Mean Corpuscular Hemoglobin 30.5 pg (27.0-31.0); Mean Corpuscular Volume 91.5 fL (78.0-102.0); Mean Platelet Volume 11.7 fl (9.2-11.8); Monocytes Absolute Auto 0.36 K/mm3 (0.10-0.90); Monocytes Percent Auto 6.4 % (2.0-11.0); Neutrophils Absolute Auto 3.3 K/mm3 (1.7-7.2); Neutrophils Percent Auto 58.7 % (50.0-70.0); Platelet Count Result 164 K/mm3 (150-420); Red Blood Count 4.23 M/mm3 (4.20-5.40); Red Cell Distribution Width 12.9 % (11.6-14.4); White Blood Count 5.6 K/mm3 (4.8-10.8)
[2022-03-22 09:51] LABS: Appearance Urine Slightly Cloudy (Clear); Bilirubin Urine Negative (Negative); Color Urine Light Yellow (Yellow); Glucose Urine UA Negative (Negative); Ketones Urine Negative (Negative); Leukocyte Esterase Ur Negative LEU/UL (Negative); Nitrate Urine Positive (Negative); Protein Urine 1+ (Negative); Urobilinogen Urine 0.2 mg/dL (0.2-1.0)
[2022-03-22 09:52] LABS: Creatinine Urine 60.71 mg/dL (40-278); Total Protein Urine Random 97.4 mg/dL (0.0-11.9)
[2022-03-22 09:55] LABS: Albumin Level 3.5 g/dL (3.4-5.0); Anion Gap 7 mmol/L (8-16); Blood Urea Nitrogen 21 mg/dL (7-18); Calcium 8.7 mg/dL (8.5-10.1); Carbon Dioxide 24 mmol/L (21-32); Chloride 104 mmol/L (98-108); Estimated Glomerular Filt Rate 32; Glucose 169 mg/dL (70-99); Osmolality Calculated 287 mOsm/kg (285-295); Phosphorus 3.3 mg/dL (2.6-4.7); Potassium 4.8 mmol/L (3.5-5.1); Sodium 135 mmol/L (136-145)
[2022-03-22 10:02] LABS: Add Urine Microscopic? YES; Blood Urine Trace-Intact (Negative); RBC Urine 0-2 /hpf (0-2); Squamous Epithelial Cell Urine Moderate /hpf (Few)
[2022-03-22 10:03] LABS: Bacteria Urine 1+ /hpf
[2022-03-25 15:25] LABS: Parathyroid Intact 68 pg/mL (14-64)
== END 2022-03-22 09:06 | disposition home or self-care (01) ==
LOC: CHSLAB 09:07
PROVIDERS: PCP Family Medicine; Visit Provider Internal Medicine Nephrology
DX: N18.31 Chronic kidney disease, stage 3a (principal); R82.90 Unspecified abnormal findings in urine
CPT/HCPCS: 36415; 80069; 81001; 82570; 83970; 84156; 85025; 87086

== ENCOUNTER 2022-04-23 13:42 | Outpatient (CLI) | payer MEDICARE, SELFPAY ==
[2022-04-23 13:57] LABS: Hematocrit 45.6 % (35.0-42.0); Hemoglobin 15.2 g/dL (11.7-13.8); Mean Corpuscular HGB Conc 33.3 g/dL (32.0-36.0); Mean Corpuscular Hemoglobin 30.7 pg (27.0-31.0); Mean Corpuscular Volume 92.1 fL (78.0-102.0); Mean Platelet Volume 12.2 fl (9.2-11.8); Platelet Count Result 199 K/mm3 (150-420); Red Blood Count 4.95 M/mm3 (4.20-5.40); Red Cell Distribution Width 12.4 % (11.6-14.4)
[2022-04-23 14:13] LABS: Alanine Aminotransferase 26 U/L (14-59); Albumin Level 3.9 g/dL (3.4-5.0); Alkaline Phosphatase 104 U/L (46-116); Anion Gap 13 mmol/L (8-16); Aspartate Amino Transferase 34 U/L (15-37); Bilirubin,Total 1.4 mg/dL (0.00-1.00); Blood Urea Nitrogen 27 mg/dL (7-18); Calcium 9.2 mg/dL (8.5-10.1); Carbon Dioxide 24 mmol/L (21-32); Chloride 95 mmol/L (98-108); Estimated Glomerular Filt Rate 18; Glucose 207 mg/dL (70-99); Osmolality Calculated 285 mOsm/kg (285-295); Potassium 3.3 mmol/L (3.5-5.1); Sodium 132 mmol/L (136-145); Total Protein 7.7 g/dL (6.4-8.2)
== END 2022-04-23 13:43 | disposition home or self-care (01) ==
LOC: CHSLAB 13:43
PROVIDERS: PCP Family Medicine; Visit Provider Family Medicine
DX: R11.2 Nausea with vomiting, unspecified (principal)
CPT/HCPCS: 36415; 80053; 85027

== ENCOUNTER 2022-04-23 15:26 | Outpatient (CLI) | payer MEDICARE, SELFPAY ==
[2022-04-23] MEDS: SODIUM CHLORIDE 0.9% IV 1,000 ML 500 ML IV CONT (17:25)
--- NOTE | 2022-04-23 19:49 | PC.NURSE ---
Patient sent over from doctor's office for fluids due to dehydration. x3 nurses attempted multiple times to obtain IV site. Nurse able to find site in left foot. IV infusion started. Patient moved foot constantly causing the IV pump to sound. Patient down to small amount in IV bag and site started to swell slightly. IV stopped and patient stated she felt better. IV removed intact and pressure dressing applied. Nurse instructed patient on IV site care, elevate foot. Nurse instructed patient on bland diet and fluid intake. Patient stated understanding. 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
== END 2022-04-23 15:27 | disposition home or self-care (01) ==
LOC: CHSTREATRM 15:28
PROVIDERS: PCP Family Medicine; Visit Provider Family Medicine
DX: E86.0 Dehydration (principal)
CPT/HCPCS: 96360; 96361; J7030

== ENCOUNTER 2022-04-25 10:25 | Inpatient (IN) | payer MEDICARE, SELFPAY ==
[2022-04-25] VITALS (10 sets, daily range): BP systolic 98–125; BP diastolic 49–73; PULSE 57–72; RESP 18–20; TEMP 37.3; O2SAT 90–100; BMI 31.8
--- NOTE | ~2022-04-25 | XR_ITS ---
EXAMINATION: XR chest 1V portable DATE: 04/28/2022 10:53 INDICATION: Weakness. Acute renal insufficiency. TECHNIQUE: frontal view of the chest was obtained. COMPARISON: Chest CT dated 12/05/2019 FINDINGS: The lungs remain clear with no focal airspace opacities, pulmonary edema, pleural effusion or pneumot horax. The cardiomediastinal silhouette is normal. Distal right clavicle resection. IMPRESSION: 1. No acute cardiopulmonary disease. Reviewed, dictated and finalized at location B.
--- NOTE | ~2022-04-25 | US_ITS ---
US renal BI DATE: 04/26/2022 11:33 INDICATION: Renal failure TECHNIQUE: Real-time imaging of kidneys and urinary bladder COMPARISON: 04/25/[address] abdomen and pelvis FINDINGS: Right kidney measures approximately 10.4 cm length, left kidney 11.7 cm. No renal mass lesi on or hydronephrosis is detected. The urinary bladder is evacuated and not optimally evaluated. IMPRESSION: No renal mass lesion or obstructive uropathy is detected Reviewed, dictated and finalized at Location A. Reviewed, dictated and finalized at location A.
--- NOTE | ~2022-04-25 | CT_ITS ---
EXAMINATION: CT abdomen pelvis wo con DATE: 04/25/2022 18:49 INDICATION: Nausea and vomiting. Elevated creatinine. TECHNIQUE: Computed tomography (CT) of the abdomen and pelvis was performed without intravenous contr ast. The dose-length product was 693.26 mGy-cm. Automated exposure control and iterative reconstructi on technique were employed. COMPARISON: CT dated 09/15/2021 FINDINGS: Heart size normal. No significant pleural or pericardial effusion. There is interlobular se ptal thickening, suspicious for chronic interstitial disease. There are calcified granulomas of the l iver and spleen. Gallbladder is mildly distended. The pancreas, and kidneys are unremarkable. There a re bilateral renal arterial calcifications. There are bilateral adrenal masses, largest in the left a drenal gland measuring 2 cm, likely benign adenomas. Nonobstructive bowel gas pattern. Small fat-cont aining umbilical hernia. Edge catheter present in the bladder. Colonic diverticulosis without eviden ce for diverticulitis. There are severe degenerative changes of the hips. Mild lumbar spondylosis. Th ere are a few scattered air-fluid levels in the small bowel, suspicious for enteritis, although there is no evidence for obstruction. There are a few areas of focal small bowel wall thickening.. There i s colonic diverticulosis without evidence for diverticulitis. No free air or free fluid. IMPRESSION: 1. Air-fluid levels of the small bowel with segments of mild small bowel thickening, suspicious for e nteritis. 2: Coarse interlobular septal thickening of the lung bases suspicious for chronic interstitial lung d isease. 3: Bilateral adrenal masses, most likely benign adenomas. Reviewed, dictated and finalized at location A. IMPRESSION: 1. Air-fluid levels of the small bowel with segments of mild small bowel thicke los, suspicious for enteritis. 2: Coarse interlobular septal thickening of the lung bases suspicious for chron ic interstitial lung disease. 3: Bilateral adrenal masses, most likely benign adenomas.
[2022-04-25 10:40] LABS: Glucose Point of Care 228 mg/dl (65-105)
[2022-04-25] MEDS: SODIUM CHLORIDE 0.9% IV 1,000 ML 999 ML IV CONT ×2 (10:55→12:36)
[2022-04-25] MEDS: ONDANSETRON INJ 4 MG/2 ML VIAL IV PUSH (10:56)
[2022-04-25] MEDS: PANTOPRAZOLE SODIUM IV 40 MG VIAL IV PUSH ×2 (10:56→21:03)
[2022-04-25 11:22] LABS: Hematocrit 36.7 % (35.0-42.0); Hemoglobin 13.1 g/dL (11.7-13.8); Immature Platelet Fraction Pct 10.4 % (1.0-7.0); Mean Corpuscular HGB Conc 35.7 g/dL (32.0-36.0); Mean Platelet Volume 12.9 fl (9.2-11.8); Platelet Count Result 122 K/mm3 (150-420); Red Blood Count 4.22 M/mm3 (4.20-5.40); Red Cell Distribution Width 12.2 % (11.6-14.4); White Blood Count 11.4 K/mm3 (4.8-10.8)
[2022-04-25 11:36] LABS: Alanine Aminotransferase 23 U/L (14-59); Albumin Level 3.3 g/dL (3.4-5.0); Alkaline Phosphatase 87 U/L (46-116); Anion Gap 11 mmol/L (8-16); Aspartate Amino Transferase 18 U/L (15-37); Bilirubin,Total 1.2 mg/dL (0.00-1.00); Blood Urea Nitrogen 41 mg/dL (7-18); Calcium 8.4 mg/dL (8.5-10.1); Carbon Dioxide 28 mmol/L (21-32); Chloride 95 mmol/L (98-108); Estimated CRCL calculation 8 ml/min; Estimated Glomerular Filt Rate 7; Glucose 205 mg/dL (70-99); Lipase 467 U/L (73-393); Osmolality Calculated 294 mOsm/kg (285-295); Sodium 134 mmol/L (136-145); Total Protein 6.6 g/dL (6.4-8.2)
[2022-04-25 12:10] LABS: Band Neutrophils Percent 0 % (0-6); Lymphocytes Absolute Manual 1.25 K/mm3 (1.1-4.5); Lymphocytes Percent Manual 11 % (18-44); Monocytes Absolute Manual 0.11 K/mm3 (0.1-0.90); Monocytes Percent Manual 1 % (3-9); Neutrophils Absolute Manual 9.69 K/mm3 (1.7-7.2); Neutrophils Percent Manual 85 % (46-73); Total Cells Counted 100
[2022-04-25 12:11] LABS: Platelet Estimate Decreased (Adequate)
[2022-04-25 12:12] LABS: Hypersegmented Neutrophils Present
--- NOTE | 2022-04-25 12:15 | ECG_ITS ---
Measurements Intervals [place] Rate: 64 P: 55 RI: 180 QRS: 44 QRSD: 80 T: 55 QT: 456 QTc: 471 Interpretive Statements SINUS RHYTHM WITH SINUS ARRHYTHMIA BORDERLINE ST ABNORMALITY- HIGH LATERAL LEADS BASELINE ARTIFACT- I, III, AVL BORDERLINE ECG Electronically Signed On 04-25-2022 12:58:13 CDT by Angelo Mckeon D.O.
[2022-04-25] MEDS: POTASSIUM CHLORIDE 20 MEQ TABLET 60 MEQ PO (12:38)
[2022-04-25] MEDS: PROMETHAZINE HCL 12.5 MG SUPP.RECT 25 MG RECTAL (12:40)
[2022-04-25 15:11] LABS: Add Urine Microscopic? YES; Appearance Urine Clear (Clear); Bilirubin Urine Negative (Negative); Blood Urine 1+ (Negative); Color Urine Yellow (Yellow); Glucose Urine UA Negative (Negative); Ketones Urine Negative (Negative); Leukocyte Esterase Ur Negative LEU/UL (Negative); Nitrate Urine Negative (Negative); Protein Urine 2+ (Negative); Urobilinogen Urine 0.2 mg/dL (0.2-1.0)
[2022-04-25 15:17] LABS: RBC Urine 0-2 /hpf (0-2); Squamous Epithelial Cell Urine Moderate /hpf (Few); WBC Urine 0-3 /hpf (0-3)
[2022-04-25 15:18] LABS: Amorphous Sediment Urine Heavy; Bacteria Urine 4+ /hpf; Mucus Urine Moderate /lpf
[2022-04-25 15:25] LABS: Alanine Aminotransferase 11 U/L (14-59); Albumin Level 3.2 g/dL (3.4-5.0); Alkaline Phosphatase 91 U/L (46-116); Anion Gap 11 mmol/L (8-16); Aspartate Amino Transferase 18 U/L (15-37); Bilirubin,Total 1.2 mg/dL (0.00-1.00); Blood Urea Nitrogen 40 mg/dL (7-18); Calcium 8.3 mg/dL (8.5-10.1); Carbon Dioxide 25 mmol/L (21-32); Chloride 97 mmol/L (98-108); Estimated CRCL calculation 9 ml/min; Estimated Glomerular Filt Rate 8; Glucose 152 mg/dL (70-99); Osmolality Calculated 288 mOsm/kg (285-295); Potassium 3.4 mmol/L (3.5-5.1); Sodium 133 mmol/L (136-145); Total Protein 6.7 g/dL (6.4-8.2)
[2022-04-25 15:27] LABS: Lactic Acid Reflex 1.1 mmol/L (0.4-2.0)
--- NOTE | 2022-04-25 17:25 | ED.NAVMDI ---
HPI - Nausea/Vomiting/Diarrhea General Chief complaint: Nausea/Vomiting/Diarrhea Stated complaint: ambulance Time Seen by Provider: 04/25/22 10:29 Source: patient, EMS and RN notes reviewed Mode of arrival: EMS Limitations: no limitations History of Present Illness MD elicited complaint: nausea, vomiting and diarrhea Onset (ago): day(s) (2) Description of vomiting: watery Description of diarrhea: semi-solid Location of pain: diffuse Radiation: diffuse Pain consistency: constant Severity: mild Pain scale (0-10): 8 Quality: cramping Exacerbating factors: none Relieving factors: none Associated symptoms: loss of appetite Related Data Home Medications Medication Instructions Recorded Confirmed aspirin 81 mg tablet,delayed 81 mg PO DAILY 11/13/19 05/05/22 release (Adult Aspirin Regimen) rosuvastatin 40 mg tablet 40 mg PO DAILY 09/15/21 05/05/22 potassium chloride 20 mEq 20 tablet PO DAILY 04/25/22 05/05/22 tablet,extended release semaglutide 0.25 mg or 0.5 mg (2 0.25 mg subcut WEEKLY 04/25/22 05/05/22 mg/1.5 mL) subcutaneous pen injector (Ozempic) Allergies Allergy/AdvReac Type Severity Reaction Status Date / Time nitroglycerin [Nitromist] Allergy Intermediate unknown Verified 05/05/22 12:05 Review of Systems Review of Systems: All systems reviewed & are unremarkable except as noted in HPI and below Constitutional: Constitutional: Reports no additional constitutional complaints Eyes: Eyes: Reports no additional eye complaints ENT: Reports system reviewed and no additional complaints, except as documented Cardiovascular: Cardiovascular: Reports no additional cardiovascular complaints Respiratory: Respiratory: Reports no additional respiratory complaints Gastrointestinal: Gastrointestinal: Reports no additional gastrointestinal complaints Genitourinary: Genitourinary: Reports no additional female genitourinary complaints Musculoskeletal: Musculoskeletal: Reports no additional musculoskeletal complaints Integumentary/Breasts: Skin/Breast: Reports system reviewed and no additional complaints, except as docu Neurologic: Reports system reviewed and no additional complaints, except as documented Psychiatric: Psychiatric: Reports no additional psychiatric complaints Endocrine: Endocrine: Reports no additional endocrine complaints Hematologic/Lymphatic: Hematologic/Lymphatic: Reports no additional hematologic/lymphatic complaints Allergic/Immunologic: Allergic/Immunologic: Reports no additional allergic/immunologic complaints PMFSH Past Medical History Medical History Anemia Bipolar disorder with depression CAD (coronary artery disease) Cervical pain (neck) Chronic GERD Chronic low back pain Constipation Costochondritis Dehydration Dysuria Elevated serum creatinine Elevated serum creatinine Encounter for removal of skin lesion Female stress incontinence Hyperkalemia Hyperlipidemia associated with type 2 diabetes mellitus Hypertension associated with diabetes Low bone mass Major depression, recurrent Major depressive episode Microscopic hematuria Obesity, Class I, BMI 30-34.9 Overweight (BMI 25.0-29.9) Positive depression screening Screening for malignant neoplasm of colon Type 2 diabetes mellitus Vomiting Surgical History Surgical History History of appendectomy History of cataract removal with insertion of prosthetic lens bilateral History of hysterectomy History of knee replacement History of repair of rotator cuff History of tonsillectomy Family History Family History Sister Family history of lymphoma Mother Hypertension Family history of type 2 diabetes mellitus Family history of coronary artery disease Mother Hypertension Family history of coronary artery disease Family history of type 2 diabetes
[2022-04-25 18:02] LABS: SARS-CoV-2 Ag Negative (Negative)
--- NOTE | 2022-04-25 19:00 | ADMGEN ---
This patient, Josi Bradford, was admitted to 2nd Floor Room 208-2. Patient was oriented to hospital policies and general routines including ID bracelet, bed and alarms, pain management, procedures, bathroom and other care routines, personal items, smoking policy, room service/diet, and visiting hours. Information on how to activate the Rapid Response Team has been discussed. Patient is encouraged to report perceived risks to care and to ask questions if she does not understand what she is told or what she should do.
[2022-04-25] MEDS: SODIUM CHLORIDE 0.9% IV 1,000 ML 100 ML IV CONT (20:21)
[2022-04-25] MEDS: HEPARIN SODIUM 5,000 UNITS/ML VIAL 5000 UNITS SUB-Q (21:02)
[2022-04-25 21:23] LABS: Glucose Point of Care 150 mg/dl (65-105)
[2022-04-26] VITALS: BP 123/58; PULSE 70; RESP 16; TEMP 36.6; O2SAT 96
[2022-04-26 04:44] LABS: Basophils Absolute Auto 0.05 K/mm3 (0.00-0.10); Basophils Percent Auto 0.6 % (0.0-1.0); Eosinophils Absolute Auto 0.06 K/mm3 (0.02-0.50); Eosinophils Percent Auto 0.7 % (1.0-6.0); Hematocrit 33.6 % (35.0-42.0); Hemoglobin 11.6 g/dL (11.7-13.8); Immature Granulocyte Absolute 0.03 K/mm3 (0.00-0.00); Immature Granulocyte Percent A 0.4 % (0.0-0.0); Lymphocytes Absolute Auto 1.58 K/mm3 (1.10-4.50); Lymphocytes Percent Auto 19.5 % (18.0-42.0); Mean Corpuscular HGB Conc 34.5 g/dL (32.0-36.0); Mean Corpuscular Hemoglobin 30.9 pg (27.0-31.0); Mean Corpuscular Volume 89.6 fL (78.0-102.0); Mean Platelet Volume 12.6 fl (9.2-11.8); Monocytes Absolute Auto 0.62 K/mm3 (0.10-0.90); Monocytes Percent Auto 7.6 % (2.0-11.0); Neutrophils Absolute Auto 5.8 K/mm3 (1.7-7.2); Neutrophils Percent Auto 71.2 % (50.0-70.0); Platelet Count Result 135 K/mm3 (150-420); Red Blood Count 3.75 M/mm3 (4.20-5.40); Red Cell Distribution Width 12.4 % (11.6-14.4); White Blood Count 8.1 K/mm3 (4.8-10.8)
[2022-04-26 05:20] LABS: Hemoglobin A1C 7.1 % (<5.7)
[2022-04-26 05:21] LABS: Alanine Aminotransferase 17 U/L (14-59); Albumin Level 2.7 g/dL (3.4-5.0); Alkaline Phosphatase 78 U/L (46-116); Anion Gap 7 mmol/L (8-16); Aspartate Amino Transferase 18 U/L (15-37); Bilirubin,Total 1.1 mg/dL (0.00-1.00); Blood Urea Nitrogen 41 mg/dL (7-18); Carbon Dioxide 25 mmol/L (21-32); Chloride 101 mmol/L (98-108); Estimated CRCL calculation 8 ml/min; Estimated Glomerular Filt Rate 7; Glucose 118 mg/dL (70-99); Osmolality Calculated 287 mOsm/kg (285-295); Potassium 3.5 mmol/L (3.5-5.1); Sodium 133 mmol/L (136-145); Total Protein 5.7 g/dL (6.4-8.2)
--- NOTE | 2022-04-26 05:35 | PC.NURSE ---
Notified by lab the patient's creatinine is 6.10 LOG RAFTER notified,
[2022-04-26] MEDS: ONDANSETRON INJ 4 MG/2 ML VIAL IV PUSH (06:14)
[2022-04-26] MEDS: SODIUM CHLORIDE 0.9% IV 1,000 ML 100 ML IV CONT ×2 (06:38→17:20)
[2022-04-26 07:30] VITALS: BP 121/53; PULSE 65; RESP 18; TEMP 36.4; O2SAT 98
[2022-04-26] MEDS: ASPIRIN 81 MG ENTERIC TABLET PO (09:21)
[2022-04-26] MEDS: ROSUVASTATIN 10 MG TABLET 40 MG PO (09:21)
[2022-04-26] MEDS: HEPARIN SODIUM 5,000 UNITS/ML VIAL 5000 UNITS SUB-Q ×2 (09:21→21:05)
[2022-04-26] MEDS: PANTOPRAZOLE SODIUM IV 40 MG VIAL IV PUSH ×2 (09:22→21:05)
[2022-04-26 11:54] LABS: Glucose Point of Care 208 mg/dl (65-105)
--- NOTE | 2022-04-26 11:54 | PM.IMHP ---
H&P: HPI History of Present Illness Date/Time: 04/26/22 11:54 Chief Complaint: Nausea vomiting diarrhea Narrative: This is a 67-year-old that presented to the emergency room complaining of nausea vomiting and diarrhea have been complaining to her primary care doctor as well 3 days prior. Patient was found to be an renal failure with a creatinine 5.88 patient given two boluses and creatinine level changed to 6.10. Nephrology was notified Dr. Greene informs me he spoke with Dr. Stapleton who said to continue to hydrate patient as she is a patient of his but normal creatinine is around 1.8-2.1. Patient currently has a past medical history of diabetes, high blood pressure, hyperlipidemia, 2 stents placements, appendectomy, hysterectomy, tonsillectomy. Patient currently has no shortness of breath Edge catheter is in place denying any pain no signs and symptoms of fluid overload. Attempted to transfer patient this morning as patient's creatinine currently 6.10 she has had more than 2500 in only [address] Reeder has accepted patient and she is transfer to [facility] discussed with Dr. Bhatt we will watch patient for another 24-hour and continue to hydrate. If there should be any problems with patient goes into fluid overload or any respiratory distress patient will be immediately transferred. Patient denies any nausea vomiting and/or diarrhea states that she feels better states that her stomach does grumble though when she has to use the restroom patient's labs currently are. Potassium 3.5, sodium 133, BUN 41, creatinine 6.10, white blood count 8.1, hemoglobin 11.6, [place] 33.6 platelet 135 we are holding any nephrotoxic medication I did hold potassium and losartan Review of Systems Review of Systems: Nausea vomiting and/or diarrhea All systems reviewed & are unremarkable except as noted in HPI and below [facility] Past Medical History Medical History Anemia Bipolar disorder with depression CAD (coronary artery disease) Cervical pain (neck) Chronic GERD Chronic low back pain Constipation Costochondritis Dehydration Dysuria Elevated serum creatinine Elevated serum creatinine Encounter for removal of skin lesion Female stress incontinence Hyperkalemia Hyperlipidemia associated with type 2 diabetes mellitus Hypertension associated with diabetes Low bone mass Major depression, recurrent Major depressive episode Microscopic hematuria Obesity, Class I, BMI 30-34.9 Overweight (BMI 25.0-29.9) Positive depression screening Screening for malignant neoplasm of colon Type 2 diabetes mellitus Vomiting Surgical History Surgical History History of appendectomy History of cataract removal with insertion of prosthetic lens bilateral History of hysterectomy History of knee replacement History of repair of rotator cuff History of tonsillectomy Family History Family History Sister Family history of lymphoma Mother Hypertension Family history of type 2 diabetes mellitus Family history of coronary artery disease Mother Hypertension Family history of coronary artery disease Family history of type 2 diabetes mellitus Father Hypertension Family history of coronary artery disease Sister Family history of lymphoma Father Family history of coronary artery disease Hypertension Social History Social History Smoking status: Never smoker Second hand tobacco smoke exposure: Yes (Ex-) Smoking end date: 10/17/98 Alcohol intake: never Drinks per week: 0 Substance use: current Substance use type: marijuana Other substance usage details: uses marijuana to help her sleep Additional living arrangements comments: Lives with adult Niece and her family Additional occupation
--- NOTE | 2022-04-26 13:57 | P.PNCROSS_ITS ---
Event Note Event Note Event Note: Spoke with Infectious disease Pharmacist and we discussed patient urine and I w ill order Rocephin 2 gram Q24 hours per recommendation . Evaluated patient kidney infection
[2022-04-26 16:30] VITALS: BP 128/61; PULSE 63; RESP 18; TEMP 36.5; O2SAT 98
[2022-04-26 17:03] LABS: Glucose Point of Care 117 mg/dl (65-105)
[2022-04-26 21:30] LABS: Glucose Point of Care 145 mg/dl (65-105)
[2022-04-27] VITALS: BP 124/55; PULSE 63; RESP 16; TEMP 36.6; O2SAT 96
[2022-04-27] MEDS: SODIUM CHLORIDE 0.9% IV 1,000 ML 100 ML IV CONT ×3 (03:27→23:56)
[2022-04-27 05:45] LABS: Hematocrit 32.5 % (35.0-42.0); Hemoglobin 11.4 g/dL (11.7-13.8); Mean Corpuscular HGB Conc 35.1 g/dL (32.0-36.0); Mean Corpuscular Volume 88.3 fL (78.0-102.0); Mean Platelet Volume 12.1 fl (9.2-11.8); Platelet Count Result 114 K/mm3 (150-420); Red Blood Count 3.68 M/mm3 (4.20-5.40); Red Cell Distribution Width 12.2 % (11.6-14.4); White Blood Count 6.9 K/mm3 (4.8-10.8)
[2022-04-27 05:56] LABS: Anion Gap 8 mmol/L (8-16); Blood Urea Nitrogen 39 mg/dL (7-18); Calcium 7.8 mg/dL (8.5-10.1); Carbon Dioxide 24 mmol/L (21-32); Chloride 101 mmol/L (98-108); Estimated CRCL calculation 8 ml/min; Estimated Glomerular Filt Rate 7; Glucose 105 mg/dL (70-99); Osmolality Calculated 285 mOsm/kg (285-295); Potassium 3.5 mmol/L (3.5-5.1); Sodium 133 mmol/L (136-145)
--- NOTE | 2022-04-27 06:01 | PC.NURSE ---
Lab called to report a critical high creatinine value of 6.07.
--- NOTE | 2022-04-27 06:15 | PC.NURSE ---
Kavin Elizalde NP, notified of high critical creatinine value of 6.07. No new orders at this time.
[2022-04-27 07:40] VITALS: BP 156/62; PULSE 66; RESP 18; TEMP 36.6; O2SAT 99
--- NOTE | 2022-04-27 08:13 | PM.EVENT ---
Event Note Event Note Event Note: DR. Warner called and the plan will be to keep for another 24 hours as there is no electrolyte abnormalities going on and she is tolerating the fluids and she is putting out urine. At this time.
--- NOTE | 2022-04-27 08:17 | WPDPN ---
Progress Note: A&P Assessment and Plan (1) Gastroenteritis: Code(s): K52.9 - Noninfective gastroenteritis and colitis, unspecified Status: Acute Assessment and Plan: Improved No nausea and or vomiting/diarrhea Zofran ordered IVF Protonic (2) Dehydration: Code(s): E86.0 - Dehydration Status: Acute Assessment and Plan: Normal Saline @100 ml Rodriguez catheter to monitor intake and output (3) Acute renal failure (ARF): Code(s): N17.9 - Acute kidney failure, unspecified Status: Acute Assessment and Plan: 41/5.88>40/5.61>41/6.10>39/6.07 IVF @100ml/hr Strict intake and output rodriguez catheter to monitor output Avoid nephrotoxic drug Losartan and potassium stopped monitor (4) Nausea and vomiting: Code(s): R11.2 - Nausea with vomiting, unspecified Status: Acute Assessment and Plan: Resolved zofran prn (5) Type 2 diabetes mellitus: Code(s): E11.9 - Type 2 diabetes mellitus without complications Status: Acute Assessment and Plan: Accucheck ac&HS Insulin Hold all oral antiglycemic (6) Chronic GERD: Code(s): K21.9 - Gastro-esophageal reflux disease without esophagitis Status: Acute Assessment and Plan: Protonix BID (7) UTI (urinary tract infection): Code(s): N39.0 - Urinary tract infection, site not specified Status: Acute Assessment and Plan: Rocephin 2gm Q 24 hour at the recommendation of Infectious disease Pharmacist Urine culture sent off Subjective Date/time seen: 04/27/22 08:17 Interval history: Mrs. Bradford is doing welll this morning and she is denying any pain and or discomfort. She has not had any diarrhea and nausea with vomiting. Patient has remained afebrile and states she is feeling better today. Mrs Bradford was assisted to recliner and she is eating without difficulties. I did discuss plan of care with her informed her I spoke with her Manager Financial Planning and they are aware of her labs and her intake and output. Exam Narrative: GENERAL:Well-appearing, well-nourished, and in no acute distress. HEAD:Normocephalic, atraumatic. EYES: PERRLA and EOMI. ENT: Nares clear, no rhinorrhea or epistaxis. Mucous membranes moist. CHEST: Clear to auscultation. No respiratory distress. HEART: Regular rate and rhythm. Normal peripheral pulses. ABDOMEN: Soft, nontender, nondistended, normal active bowel sounds. EXTREMITIES: Normal range of motion. No edema. SKIN: Warm, dry, no rash. NEURO: No focal deficits. Alert and oriented x3. Objective Data Vital Signs Vital Signs: Vital Signs - 24 hr 04/26/22 16:30 04/27/22 00:00 04/27/22 07:40 Temperature 97.7 F 97.8 F 98 F Pulse Rate 63 63 66 Respiratory Rate 18 16 18 Blood Pressure 128/61 124/55 L 156/62 H Pulse Oximetry 98 96 99 Oxygen Delivery Room Air Room Air Room Air Intake/Output Intake/Output: Intake & Output 04/24/22 04/25/22 04/26/22 04/27/22 23:59 23:59 23:59 23:59 Intake Total 1999 3270 1100 Output Total 1625 1300 Balance 1999 1645 -200 Meds/Results Medications: Active Medications Generic Name Dose Route Start Last Admin Trade Name Freq PRN Reason Stop Dose Admin Aspirin 81 mg 04/26/22 09:00 04/26/22 09:21 Aspirin 81 Mg Enteric Tablet PO 81 mg DAILY ANDRZEJ Administration Docusate Sodium 100 mg 04/25/22 17:58 Docusate Sodium 100 Mg Capsule PO BID PRN constipation Heparin Sodium (Porcine) 5,000 units 04/25/22 21:00 04/26/22 21:05 Heparin Sodium 5,000 Units/Ml Vial SUB-Q 5,000 units Q12HR ANDRZEJ Administration Sodium Chloride 1,000 mls @ 100 mls/hr 04/25/22 18:00 04/27/22 03:27 Normal Saline Iv IV CONT 100 mls/hr .Q10H ANDRZEJ Administration Ceftriaxone Sodium 2 gm in 100 mls @ 200 mls/hr 04/26/22 14:00 04/26/22 15:10 Rocephin 2 Gm/D5w 100 Ml IVPB Infused Q24H ANDRZEJ Infusion Insulin Human Lispro 2 - 5 units 04/26/22 08:0
[2022-04-27] MEDS: ASPIRIN 81 MG ENTERIC TABLET PO (09:47)
[2022-04-27] MEDS: HEPARIN SODIUM 5,000 UNITS/ML VIAL 5000 UNITS SUB-Q ×2 (09:47→20:57)
[2022-04-27] MEDS: PANTOPRAZOLE SODIUM IV 40 MG VIAL IV PUSH ×2 (09:47→20:58)
[2022-04-27] MEDS: ROSUVASTATIN 10 MG TABLET 40 MG PO (09:48)
[2022-04-27 11:49] LABS: Glucose Point of Care 176 mg/dl (65-105)
[2022-04-27 16:35] VITALS: BP 152/56; PULSE 67; RESP 16; TEMP 36.6; O2SAT 100
[2022-04-27 17:01] LABS: Glucose Point of Care 190 mg/dl (65-105)
[2022-04-27] MEDS: ONDANSETRON INJ 4 MG/2 ML VIAL IV PUSH (17:55)
[2022-04-27 21:13] LABS: Glucose Point of Care 173 mg/dl (65-105)
[2022-04-27 23:02] VITALS: BP 132/60; PULSE 65; RESP 16; TEMP 36.7; O2SAT 100
[2022-04-28] MEDS: ONDANSETRON INJ 4 MG/2 ML VIAL IV PUSH (07:08)
[2022-04-28 07:09] LABS: Glucose Point of Care 106 mg/dl (65-105)
[2022-04-28 08:00] VITALS: BP 123/69; PULSE 62; RESP 16; TEMP 36.6; O2SAT 97
[2022-04-28] MEDS: ROSUVASTATIN 10 MG TABLET 40 MG PO (08:17)
[2022-04-28] MEDS: PANTOPRAZOLE SODIUM IV 40 MG VIAL IV PUSH ×2 (08:17→21:09)
[2022-04-28] MEDS: ASPIRIN 81 MG ENTERIC TABLET PO (08:17)
[2022-04-28] MEDS: HEPARIN SODIUM 5,000 UNITS/ML VIAL 5000 UNITS SUB-Q ×2 (08:17→21:08)
[2022-04-28 09:14] LABS: Hemoglobin 12.5 g/dL (11.7-13.8); Mean Corpuscular HGB Conc 34.7 g/dL (32.0-36.0); Mean Corpuscular Volume 89.3 fL (78.0-102.0); Mean Platelet Volume 12.6 fl (9.2-11.8); Platelet Count Result 111 K/mm3 (150-420); Red Blood Count 4.03 M/mm3 (4.20-5.40); White Blood Count 6.5 K/mm3 (4.8-10.8)
[2022-04-28] MEDS: SODIUM CHLORIDE 0.9% IV 1,000 ML 100 ML IV CONT (09:46)
[2022-04-28 09:53] LABS: Alanine Aminotransferase 16 U/L (14-59); Albumin Level 2.6 g/dL (3.4-5.0); Alkaline Phosphatase 80 U/L (46-116); Anion Gap 14 mmol/L (8-16); Aspartate Amino Transferase 16 U/L (15-37); Bilirubin,Total 0.6 mg/dL (0.00-1.00); Blood Urea Nitrogen 33 mg/dL (7-18); Calcium 7.9 mg/dL (8.5-10.1); Carbon Dioxide 20 mmol/L (21-32); Chloride 100 mmol/L (98-108); Estimated CRCL calculation 9 ml/min; Estimated Glomerular Filt Rate 8; Glucose 197 mg/dL (70-99); Magnesium 1.6 mg/dL (1.8-2.4); Osmolality Calculated 290 mOsm/kg (285-295); Potassium 3.3 mmol/L (3.5-5.1); Sodium 134 mmol/L (136-145)
--- NOTE | 2022-04-28 10:19 | PC.NURSE ---
Slight non-pitting edema noted to bilateral hands, pt ring removed from right hand and placed in pt purse, no other edema noted, lungs remains clear bilaterally. POND SCALER aware.
[2022-04-28 11:00] LABS: NT Pro B Type Natriuretic Pept 1847 pg/mL (0-125)
[2022-04-28] MEDS: MAGNESIUM OXIDE 400 MG TABLET PO (11:01)
[2022-04-28] MEDS: POTASSIUM CHLORIDE 20 MEQ TABLET 40 MEQ PO (11:01)
--- NOTE | 2022-04-28 11:12 | P.PN_ITS ---
Progress Note: A&P Assessment and Plan (1) Gastroenteritis: Code(s): K52.9 - Noninfective gastroenteritis and colitis, unspecified Status: Acute Assessment and Plan: * Patient with nausea and vomiting yesterday * Zofran ordered changed to Compazine due to a prolonged QT * IVF * Protonic * Added Reglan * CT of the abdomen and pelvis indicates possible enteritis (2) Dehydration: Code(s): E86.0 - Dehydration Status: Acute Assessment and Plan: * Resolved * Normal Saline @100 ml * Rodriguez catheter to monitor intake and output (3) Acute renal failure (ARF): Code(s): N17.9 - Acute kidney failure, unspecified Status: Acute Assessment and Plan: * 41/5.88>40/5.61>41/6.10>39/6.07>5.20 * IVF @100ml/hr * Strict intake and output * rodriguez catheter to monitor output * Avoid nephrotoxic drug Losartan and potassium stopped monitor * Previous provider spoke with patient's purification director Dr. Stapleton and Dr. Payton * Will continue to monitor in a her purification director if conditions worsen * Renal active sound does not indicate any renal masses or lesion or obstructive uropathy disorders (4) Nausea and vomiting: Code(s): R11.2 - Nausea with vomiting, unspecified Status: Acute Assessment and Plan: * Started Compazine Reglan (5) Type 2 diabetes mellitus: Code(s): E11.9 - Type 2 diabetes mellitus without complications Status: Acute Assessment and Plan: * Blood sugar 197 * Accucheck * Insulin * Hold all oral antiglycemic * (6) Chronic GERD: Code(s): K21.9 - Gastro-esophageal reflux disease without esophagitis Status: Acute Assessment and Plan: * Protonix BID (7) UTI (urinary tract infection): Code(s): N39.0 - Urinary tract infection, site not specified Status: Acute Assessment and Plan: * Rocephin 2gm Q 24 hour at the recommendation of Infectious disease Pharmacist will continue for total 5 days * Urine culture sent off final results no growth (8) Electrolyte imbalance: Code(s): E87.8 - Other disorders of electrolyte and fluid balance, not elsewhere classified Status: Acute Assessment and Plan: * Sodium 134, potassium 3.3, magnesium 1.6. Sodium and potassium seems to be at baseline * Will replace with supplement and monitor closely (9) Constipation: Code(s): K59.00 - Constipation, unspecified Status: Acute Assessment and Plan: * Patient complains of constipation * Continue daily stool softeners and added as needed MiraLAX Subjective Date/time seen: 04/28/22 11:12 Interval history: Received a call from patient's niece this morning inform the patient was concerned about . I informed both patient and family member that her condition is stable and that we have been consulting with her purification director for treatment plan. I informed her that if her condition deteriorates she will be transferred to the hospital for higher level of care. Patient notes that she has not had a bowel movement since Tuesday and has been having abdominal cramping along with nausea and vomiting. Patient notes that she experienced nausea and vomiting yesterday. I have added Compazine, Reglan and ordered MiraLAX to her regiment. Patient has no signs and symptoms of fluid overload chest x-ray pending along with BNP. The patient denies SOB, CP, palpitation, extremity numbness, lightheadedness, dizziness, diarrhea, chills, or fever. Review of Systems Review of Systems: All systems reviewe
--- NOTE | 2022-04-28 11:12 | WPDPN ---
Progress Note: A&P Assessment and Plan (1) Gastroenteritis: Code(s): K52.9 - Noninfective gastroenteritis and colitis, unspecified Status: Acute Assessment and Plan: Patient with nausea and vomiting yesterday Zofran ordered changed to Compazine due to a prolonged QT IVF Protonic Added Reglan CT of the abdomen and pelvis indicates possible enteritis (2) Dehydration: Code(s): E86.0 - Dehydration Status: Acute Assessment and Plan: Resolved Normal Saline @100 ml Rodriguez catheter to monitor intake and output (3) Acute renal failure (ARF): Code(s): N17.9 - Acute kidney failure, unspecified Status: Acute Assessment and Plan: 41/5.88>40/5.61>41/6.10>39/6.07>5.20 IVF @100ml/hr Strict intake and output rodriguez catheter to monitor output Avoid nephrotoxic drug Losartan and potassium stopped monitor Previous provider spoke with patient's paralegal specialist Dr. Stapleton and Dr. Payton Will continue to monitor in a her paralegal specialist if conditions worsen Renal active sound does not indicate any renal masses or lesion or obstructive uropathy disorders (4) Nausea and vomiting: Code(s): R11.2 - Nausea with vomiting, unspecified Status: Acute Assessment and Plan: Started Compazine Reglan (5) Type 2 diabetes mellitus: Code(s): E11.9 - Type 2 diabetes mellitus without complications Status: Acute Assessment and Plan: Blood sugar 197 Accucheck Insulin Hold all oral antiglycemic (6) Chronic GERD: Code(s): K21.9 - Gastro-esophageal reflux disease without esophagitis Status: Acute Assessment and Plan: Protonix BID (7) UTI (urinary tract infection): Code(s): N39.0 - Urinary tract infection, site not specified Status: Acute Assessment and Plan: Rocephin 2gm Q 24 hour at the recommendation of Infectious disease Pharmacist will continue for total 5 days Urine culture sent off final results no growth (8) Electrolyte imbalance: Code(s): E87.8 - Other disorders of electrolyte and fluid balance, not elsewhere classified Status: Acute Assessment and Plan: Sodium 134, potassium 3.3, magnesium 1.6. Sodium and potassium seems to be at baseline Will replace with supplement and monitor closely (9) Constipation: Code(s): K59.00 - Constipation, unspecified Status: Acute Assessment and Plan: Patient complains of constipation Continue daily stool softeners and added as needed MiraLAX Subjective Date/time seen: 04/28/22 11:12 Interval history: Received a call from patient's niece this morning inform the patient was concerned about . I informed both patient and family member that her condition is stable and that we have been consulting with her paralegal specialist for treatment plan. I informed her that if her condition deteriorates she will be transferred to the hospital for higher level of care. Patient notes that she has not had a bowel movement since Tuesday and has been having abdominal cramping along with nausea and vomiting. Patient notes that she experienced nausea and vomiting yesterday. I have added Compazine, Reglan and ordered MiraLAX to her regiment. Patient has no signs and symptoms of fluid overload chest x-ray pending along with BNP. The patient denies SOB, CP, palpitation, extremity numbness, lightheadedness, dizziness, diarrhea, chills, or fever. Review of Systems Review of Systems: All systems reviewed & are unremarkable except as noted in HPI and below Exam Narrative: GENERAL:Well-appearing, well-nourished, and in no acute distress. HEAD:Normocephalic, atraumatic. EYES: PERRLA and EOMI. ENT: Nares clear, no rhinorrhea or epistaxis. Mucous membranes moist. CHEST: Clear to auscultation. No respiratory distress. HEART: Regular rate and rhythm. Normal peripheral pulses. ABDOMEN: Soft, nontender, nondistended, normal active bowel jeremiah
[2022-04-28 11:19] LABS: Glucose Point of Care 197 mg/dl (65-105)
[2022-04-28] MEDS: METOCLOPRAMIDE HCL 2.5 MG TABLET PO ×3 (11:46→21:09)
[2022-04-28] MEDS: polyethylene glycoL 3350 17 GM POWD.PACK PO (11:46)
[2022-04-28 16:00] VITALS: BP 120/59; PULSE 67; RESP 16; TEMP 36.4; O2SAT 99
[2022-04-28 16:38] LABS: Glucose Point of Care 151 mg/dl (65-105)
[2022-04-28] MEDS: SODIUM CHLORIDE 0.9% IV 1,000 ML 125 ML IV CONT ×2 (18:01→23:58)
--- NOTE | 2022-04-28 18:04 | PC.NURSE ---
pt reports a haresh garcia is not to get any information on pt, charge nurse notified
[2022-04-28 21:09] LABS: Glucose Point of Care 191 mg/dl (65-105)
[2022-04-28] MEDS: traZODone HCL 50 MG TABLET PO (21:11)
[2022-04-29] VITALS: BP 96/46; PULSE 69; RESP 16; TEMP 36.4; O2SAT 96
[2022-04-29 05:10] LABS: Hematocrit 30.8 % (35.0-42.0); Hemoglobin 10.7 g/dL (11.7-13.8); Mean Corpuscular HGB Conc 34.7 g/dL (32.0-36.0); Mean Corpuscular Hemoglobin 30.7 pg (27.0-31.0); Mean Corpuscular Volume 88.3 fL (78.0-102.0); Mean Platelet Volume 12.3 fl (9.2-11.8); Platelet Count Result 110 K/mm3 (150-420); Red Blood Count 3.49 M/mm3 (4.20-5.40); Red Cell Distribution Width 12.3 % (11.6-14.4); White Blood Count 5.9 K/mm3 (4.8-10.8)
[2022-04-29 05:28] LABS: Alanine Aminotransferase 27 U/L (14-59); Albumin Level 2.2 g/dL (3.4-5.0); Alkaline Phosphatase 69 U/L (46-116); Anion Gap 9 mmol/L (8-16); Aspartate Amino Transferase 31 U/L (15-37); Bilirubin,Total 0.3 mg/dL (0.00-1.00); Blood Urea Nitrogen 32 mg/dL (7-18); Calcium 7.5 mg/dL (8.5-10.1); Carbon Dioxide 23 mmol/L (21-32); Chloride 105 mmol/L (98-108); Estimated CRCL calculation 11 ml/min; Estimated Glomerular Filt Rate 10; Glucose 105 mg/dL (70-99); Magnesium 1.5 mg/dL (1.8-2.4); Osmolality Calculated 290 mOsm/kg (285-295); Potassium 3.6 mmol/L (3.5-5.1); Sodium 137 mmol/L (136-145); Total Protein 5.2 g/dL (6.4-8.2)
--- NOTE | 2022-04-29 05:33 | PC.NURSE ---
Lab called to report a critical high creatinine of 4.45.
--- NOTE | 2022-04-29 06:05 | PC.NURSE ---
Hanh Hemphill NP, notified of high critical creatinine result of 4.45; No new orders at this time.
[2022-04-29] MEDS: METOCLOPRAMIDE HCL 2.5 MG TABLET PO ×3 (06:10→20:43)
[2022-04-29 08:00] VITALS: BP 132/60; PULSE 78; RESP 18; TEMP 36.6; O2SAT 98
[2022-04-29 08:49] LABS: Glucose Point of Care 156 mg/dl (65-105)
[2022-04-29] MEDS: PANTOPRAZOLE SODIUM IV 40 MG VIAL IV PUSH (08:49)
[2022-04-29] MEDS: HEPARIN SODIUM 5,000 UNITS/ML VIAL 5000 UNITS SUB-Q ×2 (08:49→20:43)
[2022-04-29] MEDS: SODIUM CHLORIDE 0.9% IV 1,000 ML 125 ML IV CONT (08:49)
[2022-04-29] MEDS: ROSUVASTATIN 10 MG TABLET 40 MG PO (08:50)
[2022-04-29] MEDS: MAGNESIUM OXIDE 400 MG TABLET PO (08:51)
[2022-04-29] MEDS: POTASSIUM CHLORIDE 20 MEQ TABLET 40 MEQ PO (08:51)
[2022-04-29] MEDS: MAGNESIUM SULF 2 GM/WATER 50ML 2 GM/50 ML BAG IVPB (08:51)
[2022-04-29] MEDS: ASPIRIN 81 MG ENTERIC TABLET PO (08:51)
[2022-04-29 11:54] LABS: Glucose Point of Care 162 mg/dl (65-105)
--- NOTE | 2022-04-29 12:13 | P.PN_ITS ---
Progress Note: A&P Assessment and Plan (1) Gastroenteritis: Code(s): K52.9 - Noninfective gastroenteritis and colitis, unspecified Status: Acute Assessment and Plan: * Patient with nausea and vomiting yesterday * Zofran ordered changed to Compazine due to a prolonged QT * IVF * Protonic * Added Reglan * CT of the abdomen and pelvis indicates possible enteritis (2) Dehydration: Code(s): E86.0 - Dehydration Status: Acute Assessment and Plan: * Resolved * Normal Saline @100 ml * Rodriguez catheter to monitor intake and output (3) Acute renal failure (ARF): Code(s): N17.9 - Acute kidney failure, unspecified Status: Acute Assessment and Plan: * 41/5.88>40/5.61>41/6.10>39/6.07>5.20>4.45 * IVF @ 75ml/hr * Strict intake and output * rodriguez catheter to monitor output * Avoid nephrotoxic drug Losartan and potassium stopped monitor * Previous provider spoke with patient's patroller Dr. Stapleton and Dr. Payton, I personally spoke with him today * Will continue to hydrate the patient with IV fluid at 75 mL/h, recheck creatinine in the a.m. if Cr is at a 3 we will stop the IV fluids and monitor for an additional day and discharge. * Renal US sound does not indicate any renal masses or lesion or obstructive uropathy disorders (4) Nausea and vomiting: Code(s): R11.2 - Nausea with vomiting, unspecified Status: Acute Assessment and Plan: * Started Compazine Reglan (5) Type 2 diabetes mellitus: Code(s): E11.9 - Type 2 diabetes mellitus without complications Status: Acute Assessment and Plan: * Blood sugar stable * Accucheck * Insulin * Hold all oral antiglycemic * (6) Chronic GERD: Code(s): K21.9 - Gastro-esophageal reflux disease without esophagitis Status: Acute Assessment and Plan: * Protonix BID (7) UTI (urinary tract infection): Code(s): N39.0 - Urinary tract infection, site not specified Status: Acute Assessment and Plan: * Rocephin 2gm Q 24 hour at the recommendation of Infectious disease Pharmacist will continue for total 7 days per infectious disease pharmacist recommendations * Urine culture sent off final results no growth (8) Electrolyte imbalance: Code(s): E87.8 - Other disorders of electrolyte and fluid balance, not elsewhere classified Status: Acute Assessment and Plan: * Sodium 134>137, potassium 3.3>3.6, magnesium 1.6>1.5. Sodium and potassium seems to be at baseline * Will replace with supplement and monitor closely (9) Constipation: Code(s): K59.00 - Constipation, unspecified Status: Acute Assessment and Plan: * Patient complains of constipation * Continue daily stool softeners and added as needed MiraLAX Subjective Date/time seen: 04/29/22 12:13 Interval history: Patient has no complaints this day. Patient notes that she feels much better. The patient denies SOB, CP, palpitation, extremity numbness, lightheadedness, dizziness, diarrhea, chills, or fever. No signs or symptoms of fluid overload. Spoke with her patroller for recommendations. I will continue the fluids for an additional day reevaluate the creatinine level tomorrow in hopes that it would be at 3.00 afterwards I will discontinue the fluids for 1 day and monitor her creatinine level to ensure that it continues to improve. Review of Systems Review of Systems: All systems reviewed & are unremarkable except as noted in HPI and below
--- NOTE | 2022-04-29 12:13 | WPDPN ---
Progress Note: A&P Assessment and Plan (1) Gastroenteritis: Code(s): K52.9 - Noninfective gastroenteritis and colitis, unspecified Status: Acute Assessment and Plan: Patient with nausea and vomiting yesterday Zofran ordered changed to Compazine due to a prolonged QT IVF Protonic Added Reglan CT of the abdomen and pelvis indicates possible enteritis (2) Dehydration: Code(s): E86.0 - Dehydration Status: Acute Assessment and Plan: Resolved Normal Saline @100 ml Rodriguez catheter to monitor intake and output (3) Acute renal failure (ARF): Code(s): N17.9 - Acute kidney failure, unspecified Status: Acute Assessment and Plan: 41/5.88>40/5.61>41/6.10>39/6.07>5.20>4.45 IVF @ 75ml/hr Strict intake and output rodriguez catheter to monitor output Avoid nephrotoxic drug Losartan and potassium stopped monitor Previous provider spoke with patient's associate scientist Dr. Stapleton and Dr. Payton, I personally spoke with him today Will continue to hydrate the patient with IV fluid at 75 mL/h, recheck creatinine in the a.m. if Cr is at a 3 we will stop the IV fluids and monitor for an additional day and discharge. Renal US sound does not indicate any renal masses or lesion or obstructive uropathy disorders (4) Nausea and vomiting: Code(s): R11.2 - Nausea with vomiting, unspecified Status: Acute Assessment and Plan: Started Compazine Reglan (5) Type 2 diabetes mellitus: Code(s): E11.9 - Type 2 diabetes mellitus without complications Status: Acute Assessment and Plan: Blood sugar stable Accucheck Insulin Hold all oral antiglycemic (6) Chronic GERD: Code(s): K21.9 - Gastro-esophageal reflux disease without esophagitis Status: Acute Assessment and Plan: Protonix BID (7) UTI (urinary tract infection): Code(s): N39.0 - Urinary tract infection, site not specified Status: Acute Assessment and Plan: Rocephin 2gm Q 24 hour at the recommendation of Infectious disease Pharmacist will continue for total 7 days per infectious disease pharmacist recommendations Urine culture sent off final results no growth (8) Electrolyte imbalance: Code(s): E87.8 - Other disorders of electrolyte and fluid balance, not elsewhere classified Status: Acute Assessment and Plan: Sodium 134>137, potassium 3.3>3.6, magnesium 1.6>1.5. Sodium and potassium seems to be at baseline Will replace with supplement and monitor closely (9) Constipation: Code(s): K59.00 - Constipation, unspecified Status: Acute Assessment and Plan: Patient complains of constipation Continue daily stool softeners and added as needed MiraLAX Subjective Date/time seen: 04/29/22 12:13 Interval history: Patient has no complaints this day. Patient notes that she feels much better. The patient denies SOB, CP, palpitation, extremity numbness, lightheadedness, dizziness, diarrhea, chills, or fever. No signs or symptoms of fluid overload. Spoke with her associate scientist for recommendations. I will continue the fluids for an additional day reevaluate the creatinine level tomorrow in hopes that it would be at 3.00 afterwards I will discontinue the fluids for 1 day and monitor her creatinine level to ensure that it continues to improve. Review of Systems Review of Systems: All systems reviewed & are unremarkable except as noted in HPI and below Exam Narrative: GENERAL:Well-appearing, well-nourished, and in no acute distress. HEAD:Normocephalic, atraumatic. EYES: PERRLA and EOMI. ENT: Nares clear, no rhinorrhea or epistaxis. Mucous membranes moist. CHEST: Clear to auscultation. No respiratory distress. HEART: Regular rate and rhythm. Normal peripheral pulses. ABDOMEN: Soft, nontender, nondistended, normal active bowel sounds. EXTREMITIES: Normal range of motion. No edema. SKIN: Warm, dry, no rash.
[2022-04-29] MEDS: SENNA/DOCUSATE SODIUM TABLET 1 TAB PO ×2 (13:41→17:02)
[2022-04-29 16:00] VITALS: BP 120/72; PULSE 72; TEMP 36.6; O2SAT 18
--- NOTE | 2022-04-29 16:11 | PC.NURSE ---
1400 patient claims iv quiles all the way to toes. iv stopped. several tries to start a new by several nurses with no luck. call out to force dispatcher. new orders.
[2022-04-29] MEDS: CEFDINIR 300 MG CAPSULE PO (17:02)
[2022-04-29 17:04] LABS: Glucose Point of Care 124 mg/dl (65-105)
[2022-04-29 20:47] LABS: Glucose Point of Care 221 mg/dl (65-105)
[2022-04-29] MEDS: traZODone HCL 50 MG TABLET PO (20:47)
[2022-04-30] VITALS: BP 121/62; PULSE 71; RESP 18; TEMP 36.2; O2SAT 98
[2022-04-30 05:25] LABS: Hematocrit 30.4 % (35.0-42.0); Hemoglobin 10.6 g/dL (11.7-13.8); Mean Corpuscular HGB Conc 34.9 g/dL (32.0-36.0); Mean Corpuscular Hemoglobin 30.8 pg (27.0-31.0); Mean Corpuscular Volume 88.4 fL (78.0-102.0); Mean Platelet Volume 12.7 fl (9.2-11.8); Platelet Count Result 114 K/mm3 (150-420); Red Blood Count 3.44 M/mm3 (4.20-5.40); Red Cell Distribution Width 12.3 % (11.6-14.4); White Blood Count 5.1 K/mm3 (4.8-10.8)
[2022-04-30 05:42] LABS: Alanine Aminotransferase 55 U/L (14-59); Albumin Level 2.2 g/dL (3.4-5.0); Alkaline Phosphatase 82 U/L (46-116); Anion Gap 9 mmol/L (8-16); Aspartate Amino Transferase 58 U/L (15-37); Bilirubin,Total 0.4 mg/dL (0.00-1.00); Blood Urea Nitrogen 27 mg/dL (7-18); Calcium 7.6 mg/dL (8.5-10.1); Carbon Dioxide 24 mmol/L (21-32); Chloride 103 mmol/L (98-108); Estimated CRCL calculation 13 ml/min; Estimated Glomerular Filt Rate 12; Glucose 129 mg/dL (70-99); Magnesium 1.6 mg/dL (1.8-2.4); Osmolality Calculated 289 mOsm/kg (285-295); Potassium 3.8 mmol/L (3.5-5.1); Sodium 136 mmol/L (136-145); Total Protein 5.3 g/dL (6.4-8.2)
[2022-04-30] MEDS: METOCLOPRAMIDE HCL 2.5 MG TABLET PO ×2 (06:09→11:40)
--- NOTE | 2022-04-30 07:07 | P.DS_ITS ---
DS: Admitting Diagnosis Discharge Date 04/30/2022 Admitting Diagnosis Nausea vomiting diarrhea and acute on chronic renal failure DS: Discharge Diagnosis Discharge Diagnosis (1) Gastroenteritis: Code(s): K52.9 - Noninfective gastroenteritis and colitis, unspecified Status: Acute Assessment and Plan: * Positive iron 20 and diarrhea resolved * Continue home use of Zofran * CT of the abdomen and pelvis indicates possible enteritis (2) Dehydration: Code(s): E86.0 - Dehydration Status: Acute Assessment and Plan: * Resolved * Patient hydrated with IV fluids this stay (3) Acute renal failure (ARF): Code(s): N17.9 - Acute kidney failure, unspecified Status: Acute Assessment and Plan: * Improving * Possibly secondary to dehydration caused by nausea vomiting and diarrhea * 41/5.88>40/5.61>41/6.10>39/6.07>5.20>4.45>3.79 * Patient's hypertension medication changed from losartan to Norvasc to prevent further kidney damage * Patient will need to follow-up with Dr. Stapleton her nephrologiste. * Renal US sound does not indicate any renal masses or lesion or obstructive uropathy disorders * Repeat CMP in 3 days with results going to Dr. Stapleton (4) Nausea and vomiting: Code(s): R11.2 - Nausea with vomiting, unspecified Status: Acute Assessment and Plan: * Resolved * Possibly secondary to gastroenteritis (5) Type 2 diabetes mellitus: Code(s): E11.9 - Type 2 diabetes mellitus without complications Status: Acute Assessment and Plan: * Blood sugar stable * Accucheck * Insulin * Patient instructed to better control blood sugars to prevent further kidney damage * (6) Chronic GERD: Code(s): K21.9 - Gastro-esophageal reflux disease without esophagitis Status: Acute (7) UTI (urinary tract infection): Code(s): N39.0 - Urinary tract infection, site not specified Status: Acute Assessment and Plan: * Rocephin 2gm Q 24 hour at the recommendation of Infectious disease Pharmacist will continue for total 7 days per infectious disease pharmacist recommendations * Patient will continue Rocephin until 05/02/2002 per recommendations (8) Electrolyte imbalance: Code(s): E87.8 - Other disorders of electrolyte and fluid balance, not elsewhere classified Status: Acute Assessment and Plan: * Sodium 134>137>136, potassium 3.3>3.6>3.8 magnesium 1.6>1.5>1.6. Sodium and potassium seems to be at baseline * Will replace with supplement and monitor closely (9) Constipation: Code(s): K59.00 - Constipation, unspecified Status: Acute Assessment and Plan: * Continue daily stool softeners and added as needed MiraLAX DS: Summary Hospital Course Reason for hospitalization: Nausea vomiting diarrhea and acute on chronic renal failure Hospital Course: This is a 67-year-old that presented to the emergency room complaining of nausea vomiting and diarrhea have been complaining to her primary care doctor as well 3 days prior.? Patient was found to be an renal failure with a creatinine 5.88 patient given two boluses and creatinine level changed to 6.10.? Nephrology was notified per ER . Dr. Greene informs previous provider he spoke with Dr. Stapleton who said to continue to hydrate patient as she is a patient of his but normal creatinine is around 1.8-2.1.? Patient currently has a past medical history of diabetes, high blood pressure, hyperlipidemia, 2 stents placements, appendectomy, hysterectomy, tonsillectomy. Patient's nephro
--- NOTE | 2022-04-30 07:07 | PM.DS ---
DS: Admitting Diagnosis Discharge Date 04/30/2022 Admitting Diagnosis Nausea vomiting diarrhea and acute on chronic renal failure DS: Discharge Diagnosis Discharge Diagnosis (1) Gastroenteritis: Code(s): K52.9 - Noninfective gastroenteritis and colitis, unspecified Status: Acute Assessment and Plan: Positive iron 20 and diarrhea resolved Continue home use of Zofran CT of the abdomen and pelvis indicates possible enteritis (2) Dehydration: Code(s): E86.0 - Dehydration Status: Acute Assessment and Plan: Resolved Patient hydrated with IV fluids this stay (3) Acute renal failure (ARF): Code(s): N17.9 - Acute kidney failure, unspecified Status: Acute Assessment and Plan: Improving Possibly secondary to dehydration caused by nausea vomiting and diarrhea 41/5.88>40/5.61>41/6.10>39/6.07>5.20>4.45>3.79 Patient's hypertension medication changed from losartan to Norvasc to prevent further kidney damage Patient will need to follow-up with Dr. Stapleton her nephrologiste. Renal US sound does not indicate any renal masses or lesion or obstructive uropathy disorders Repeat CMP in 3 days with results going to Dr. Stapleton (4) Nausea and vomiting: Code(s): R11.2 - Nausea with vomiting, unspecified Status: Acute Assessment and Plan: Resolved Possibly secondary to gastroenteritis (5) Type 2 diabetes mellitus: Code(s): E11.9 - Type 2 diabetes mellitus without complications Status: Acute Assessment and Plan: Blood sugar stable Accucheck Insulin Patient instructed to better control blood sugars to prevent further kidney damage (6) Chronic GERD: Code(s): K21.9 - Gastro-esophageal reflux disease without esophagitis Status: Acute (7) UTI (urinary tract infection): Code(s): N39.0 - Urinary tract infection, site not specified Status: Acute Assessment and Plan: Rocephin 2gm Q 24 hour at the recommendation of Infectious disease Pharmacist will continue for total 7 days per infectious disease pharmacist recommendations Patient will continue Rocephin until 05/02/2002 per recommendations (8) Electrolyte imbalance: Code(s): E87.8 - Other disorders of electrolyte and fluid balance, not elsewhere classified Status: Acute Assessment and Plan: Sodium 134>137>136, potassium 3.3>3.6>3.8 magnesium 1.6>1.5>1.6. Sodium and potassium seems to be at baseline Will replace with supplement and monitor closely (9) Constipation: Code(s): K59.00 - Constipation, unspecified Status: Acute Assessment and Plan: Continue daily stool softeners and added as needed MiraLAX DS: Summary Hospital Course Reason for hospitalization: Nausea vomiting diarrhea and acute on chronic renal failure Hospital Course: This is a 67-year-old that presented to the emergency room complaining of nausea vomiting and diarrhea have been complaining to her primary care doctor as well 3 days prior.? Patient was found to be an renal failure with a creatinine 5.88 patient given two boluses and creatinine level changed to 6.10.? Nephrology was notified per ER . Dr. Greene informs previous provider he spoke with Dr. Stapleton who said to continue to hydrate patient as she is a patient of his but normal creatinine is around 1.8-2.1.? Patient currently has a past medical history of diabetes, high blood pressure, hyperlipidemia, 2 stents placements, appendectomy, hysterectomy, tonsillectomy. Patient's group fitness assistant department head was called throughout her visit for recommendations. Patient creatinine level went from a 6 to a 3. Patient is discharging with a creatinine of 3 which is closer to her baseline. She will follow-up with her group fitness assistant department head in was given instructions and educated on things she would need to do prevent further renal damage. The patient denies SOB, CP, palpitation, extremity numbness, lightheadedness, dizziness, cons
[2022-04-30 07:29] LABS: Glucose Point of Care 121 mg/dl (65-105)
[2022-04-30 08:00] VITALS: BP 132/70; PULSE 72; RESP 18; TEMP 36.4; O2SAT 97
[2022-04-30] MEDS: ROSUVASTATIN 10 MG TABLET 40 MG PO (08:18)
[2022-04-30] MEDS: MAGNESIUM OXIDE 400 MG TABLET PO (08:19)
[2022-04-30] MEDS: ASPIRIN 81 MG ENTERIC TABLET PO (08:19)
[2022-04-30] MEDS: SENNA/DOCUSATE SODIUM TABLET 1 TAB PO (08:19)
[2022-04-30] MEDS: POTASSIUM CHLORIDE 20 MEQ TABLET 40 MEQ PO (08:19)
[2022-04-30] MEDS: HEPARIN SODIUM 5,000 UNITS/ML VIAL 5000 UNITS SUB-Q (08:20)
[2022-04-30 11:36] LABS: Glucose Point of Care 184 mg/dl (65-105)
--- NOTE | 2022-04-30 13:17 | PC.NURSE ---
1150 dc per wc to [facility] mariela. verbalizes understanding of orders.
--- NOTE | 2022-05-05 13:45 | PC.NURSE ---
Unable to contact for discharge call back.
== END 2022-04-30 11:50 | disposition home or self-care (01) | DRG 683 ==
LOC: CHSED 17:32 → CHS2ND 18:32
PROVIDERS: Nurse Practitioner; Nurse Practitioner Family; Admitting Provider Internal Medicine; Emergency Provider Emergency Medicine; PCP Family Medicine; Visit Provider Internal Medicine
DX: N17.9 Acute kidney failure, unspecified (principal); N39.0 Urinary tract infection, site not specified; K52.9 Noninfective gastroenteritis and colitis, unspecified; I25.10 Atherosclerotic heart disease of native coronary artery without angina pectoris; E78.5 Hyperlipidemia, unspecified; E11.9 Type 2 diabetes mellitus without complications; E86.0 Dehydration; E87.8 Other disorders of electrolyte and fluid balance, not elsewhere classified; K59.00 Constipation, unspecified; K21.9 Gastro-esophageal reflux disease without esophagitis; M54.50 Low back pain, unspecified; G89.29 Other chronic pain; F31.9 Bipolar disorder, unspecified; Z96.659 Presence of unspecified artificial knee joint
CPT/HCPCS: 36415; 71045; 74176; 76775; 80048; 80053; 81001; 82948; 83036; 83605; 83690; 83735; 83880; 85025; 85027; 85055; 87086; 87426; 93005; 96361; 96372; 96374; 96375; 96376; 99285; A9270; C9113; C9803; G0378; J0696; J1644; J1815; J2405; J3475; J7030

== ENCOUNTER 2022-05-05 11:45 | Emergency (ER) | payer MEDICARE, SELFPAY ==
[2022-05-05 11:50] VITALS: BP 127/65; PULSE 79; RESP 16; TEMP 36.9; O2SAT 98
--- NOTE | 2022-05-05 12:03 | ED.NAVMDI ---
HPI - Nausea/Vomiting/Diarrhea General Chief complaint: Nausea/Vomiting/Diarrhea Stated complaint: vomiting cant hold water down Time Seen by Provider: 05/05/22 12:03 Source: patient Mode of arrival: ambulatory History of Present Illness HPI Narrative: 67-year-old female with a history of hypertension, diabetes mellitus, dyslipidemia, CAD status post stents, end-stage renal disease presents to the ER with -- 2 episodes of vomiting this morning. She has intermittent nausea and vomiting no abdominal pain. No diarrhea. The patient was 04/26/2000 disoriented 1022 for elevated creatinine for which she received fluids with improvement of her creatinine. MD elicited complaint: nausea and vomiting Pertinent past history: anorexia Onset (ago): week(s) Description of vomiting: watery Associated nausea: Yes Associated abdominal pain: No Location of pain: none Exacerbating factors: none Relieving factors: none Related Data Home Medications Medication Instructions Recorded Confirmed aspirin 81 mg tablet,delayed 81 mg PO DAILY 11/13/19 05/05/22 release (Adult Aspirin Regimen) rosuvastatin 40 mg tablet 40 mg PO DAILY 09/15/21 05/05/22 potassium chloride 20 mEq 20 tablet PO DAILY 04/25/22 05/05/22 tablet,extended release semaglutide 0.25 mg or 0.5 mg (2 0.25 mg subcut WEEKLY 04/25/22 05/05/22 mg/1.5 mL) subcutaneous pen injector (Ozempic) Allergies Allergy/AdvReac Type Severity Reaction Status Date / Time nitroglycerin [Nitromist] Allergy Intermediate unknown Verified 05/05/22 12:05 Review of Systems Review of Systems: All systems reviewed & are unremarkable except as noted in HPI and below Constitutional: Constitutional: Reports as per HPI and Reports no additional constitutional complaints Eyes: Eyes: Reports as per HPI and Reports no additional eye complaints ENT: Reports system reviewed and no additional complaints, except as documented and Reports as per HPI Cardiovascular: Cardiovascular: Reports as per HPI and Reports no additional cardiovascular complaints Respiratory: Respiratory: Reports as per HPI and Reports no additional respiratory complaints Gastrointestinal: Gastrointestinal: Reports as per HPI, Reports no additional gastrointestinal complaints, Reports nausea and Reports vomiting Genitourinary: Genitourinary: Reports no additional female genitourinary complaints and Reports as per HPI Musculoskeletal: Musculoskeletal: Reports no additional musculoskeletal complaints and Reports as per HPI Integumentary/Breasts: Skin/Breast: Reports system reviewed and no additional complaints, except as docu and Reports as per HPI Neurologic: Reports system reviewed and no additional complaints, except as documented Psychiatric: Psychiatric: Reports no additional psychiatric complaints and Reports as per HPI Endocrine: Endocrine: Reports no additional endocrine complaints and Reports as per HPI Hematologic/Lymphatic: Hematologic/Lymphatic: Reports no additional hematologic/lymphatic complaints and Reports as per HPI Allergic/Immunologic: Allergic/Immunologic: Reports no additional allergic/immunologic complaints and Reports as per HPI [facility] Past Medical History Medical History Anemia Bipolar disorder with depression CAD (coronary artery disease) Cervical pain (neck) Chronic GERD Chronic low back pain Constipation Costochondritis Dehydration Dysuria Elevated serum creatinine Elevated serum creatinine Encounter for removal of skin lesion Female stress incontinence Hyperkalemia Hyperlipidemia associated with type 2 diabetes mellitus Hypertension associated with diabetes Low bone mass Major depression, recurrent Major depressive episode Microscopic hematuria Obesity, Class I, BMI 30-34.9 Overweight (BMI 25.0-29.9) Positive depression screening Screening for malignant neoplasm of colon Type 2 diabetes mellitus Vomiting Surgical History
[2022-05-05 12:40] LABS: Hematocrit 35.8 % (35.0-42.0); Hemoglobin 11.4 g/dL (11.7-13.8); Mean Corpuscular HGB Conc 31.8 g/dL (32.0-36.0); Mean Corpuscular Hemoglobin 30.6 pg (27.0-31.0); Mean Platelet Volume 12.1 fl (9.2-11.8); Platelet Count Result 112 K/mm3 (150-420); Red Blood Count 3.73 M/mm3 (4.20-5.40); Red Cell Distribution Width 12.4 % (11.6-14.4); White Blood Count 3.8 K/mm3 (4.8-10.8)
[2022-05-05 12:50] VITALS: BP 130/71; PULSE 72; RESP 16; TEMP 36.6; O2SAT 98
[2022-05-05] MEDS: ONDANSETRON HCL ODT 4 MG TABLET PO (12:54)
[2022-05-05 12:57] LABS: Add Urine Microscopic? YES; Appearance Urine Clear (Clear); Bilirubin Urine Negative (Negative); Blood Urine 2+ (Negative); Color Urine Light Yellow (Yellow); Glucose Urine UA Negative (Negative); Ketones Urine Negative (Negative); Leukocyte Esterase Ur Negative LEU/UL (Negative); Nitrate Urine Negative (Negative); Protein Urine 2+ (Negative); Urobilinogen Urine 0.2 mg/dL (0.2-1.0)
[2022-05-05 13:10] LABS: Alanine Aminotransferase 72 U/L (14-59); Albumin Level 3.2 g/dL (3.4-5.0); Alkaline Phosphatase 66 U/L (46-116); Anion Gap 9 mmol/L (8-16); Aspartate Amino Transferase 68 U/L (15-37); Bilirubin,Total 0.6 mg/dL (0.00-1.00); Blood Urea Nitrogen 16 mg/dL (7-18); Calcium 8.6 mg/dL (8.5-10.1); Carbon Dioxide 24 mmol/L (21-32); Chloride 99 mmol/L (98-108); Estimated CRCL calculation 21 ml/min; Estimated Glomerular Filt Rate 21; Glucose 187 mg/dL (70-99); Osmolality Calculated 280 mOsm/kg (285-295); Sodium 132 mmol/L (136-145); Total Protein 7.2 g/dL (6.4-8.2)
[2022-05-05 13:12] LABS: Band Neutrophils Percent 0 % (0-6); Basophils Absolute Manual 0.03 K/mm3 (0-0.1); Basophils Percent Manual 1 % (0-1); Eosinophils Absolute Manual 0.03 K/mm3 (0.02-0.5); Eosinophils Percent Manual 1 % (1-6); Lymphocytes Percent Manual 8 % (18-44); Monocytes Absolute Manual 0.26 K/mm3 (0.1-0.90); Monocytes Percent Manual 7 % (3-9); Neutrophils Absolute Manual 3.23 K/mm3 (1.7-7.2); Neutrophils Percent Manual 85 % (46-73); Platelet Estimate Adequate (Adequate); Total Cells Counted 100
[2022-05-05] MEDS: SODIUM CHLORIDE 0.9% IV 1,000 ML 999 ML IV CONT (13:12)
[2022-05-05 13:13] LABS: Bacteria Urine 1+ /hpf; Squamous Epithelial Cell Urine Moderate /hpf (Few); WBC Urine None seen /hpf (0-3)
[2022-05-05 13:14] LABS: Lipase 117 U/L (73-393)
[2022-05-05 13:15] LABS: Magnesium 1.9 mg/dL (1.8-2.4)
[2022-05-05 13:15] LABS: NT Pro B Type Natriuretic Pept 647 pg/mL (0-125); Troponin I 15.2 ng/L (0.00-60.4)
[2022-05-05 14:36] VITALS: BP 131/65; PULSE 71; RESP 16; TEMP 36.8; O2SAT 97
== END 2022-05-05 14:37 | disposition home or self-care (01) ==
PROVIDERS: Emergency Provider Internal Medicine Critical Care Medicine; PCP Family Medicine
DX: R11.10 Vomiting, unspecified (principal); N18.4 Chronic kidney disease, stage 4 (severe); D63.8 Anemia in other chronic diseases classified elsewhere; I10 Essential (primary) hypertension; E11.9 Type 2 diabetes mellitus without complications; E78.5 Hyperlipidemia, unspecified; I25.10 Atherosclerotic heart disease of native coronary artery without angina pectoris; I12.9 Hypertensive chronic kidney disease with stage 1 through stage 4 chronic kidney disease, or unspecified chronic kidney disease
CPT/HCPCS: 36415; 80053; 81001; 83690; 83735; 83880; 84484; 85025; 96360; 99284; A9270; J7030

== ENCOUNTER 2022-05-18 09:24 | Outpatient (CLI) | payer MEDICARE, SELFPAY ==
[2022-05-18 09:46] LABS: Basophils Absolute Auto 0.04 K/mm3 (0.00-0.10); Basophils Percent Auto 0.5 % (0.0-1.0); Eosinophils Absolute Auto 0.04 K/mm3 (0.02-0.50); Eosinophils Percent Auto 0.5 % (1.0-6.0); Hematocrit 37.4 % (35.0-42.0); Hemoglobin 12.8 g/dL (11.7-13.8); Immature Granulocyte Absolute 0.03 K/mm3 (0.00-0.00); Immature Granulocyte Percent A 0.4 % (0.0-0.0); Lymphocytes Percent Auto 15.7 % (18.0-42.0); Mean Corpuscular HGB Conc 34.2 g/dL (32.0-36.0); Mean Corpuscular Hemoglobin 30.9 pg (27.0-31.0); Mean Corpuscular Volume 90.3 fL (78.0-102.0); Mean Platelet Volume 12.5 fl (9.2-11.8); Monocytes Absolute Auto 0.44 K/mm3 (0.10-0.90); Monocytes Percent Auto 5.8 % (2.0-11.0); Neutrophils Absolute Auto 5.9 K/mm3 (1.7-7.2); Neutrophils Percent Auto 77.1 % (50.0-70.0); Platelet Count Result 206 K/mm3 (150-420); Red Blood Count 4.14 M/mm3 (4.20-5.40); Red Cell Distribution Width 12.1 % (11.6-14.4); White Blood Count 7.6 K/mm3 (4.8-10.8)
[2022-05-18 09:55] LABS: Add Urine Microscopic? YES; Appearance Urine Clear (Clear); Bilirubin Urine 1+ (Negative); Blood Urine Negative (Negative); Color Urine Dark Yellow (Yellow); Glucose Urine UA Negative (Negative); Ketones Urine Trace (Negative); Leukocyte Esterase Ur Negative (Negative); Nitrate Urine Negative (Negative); Protein Urine 2+ (Negative); Specific Grav Ur >= 1.030 (1.010-1.020)
[2022-05-18 09:59] LABS: Bacteria Urine 1+ /hpf; RBC Urine None seen /hpf (0-2); Squamous Epithelial Cell Urine Moderate /hpf (Few); WBC Urine None seen /hpf (0-3)
[2022-05-18 10:14] LABS: Total Protein Urine Random 39.1 mg/dL (0.0-11.9); Ur Ttl Prot Creatinine Ratio 0.28 mg/mg (0-0.20)
[2022-05-18 10:21] LABS: Creatinine Urine 139.71 mg/dL (40-278)
[2022-05-18 10:54] LABS: Erythrocyte Sedimentation Rate 22 mm/hr (0-20)
[2022-05-18 10:57] LABS: Albumin Level 3.8 g/dL (3.4-5.0); Anion Gap 14 mmol/L (8-16); Blood Urea Nitrogen 31 mg/dL (7-18); Calcium 9.2 mg/dL (8.5-10.1); Carbon Dioxide 28 mmol/L (21-32); Chloride 98 mmol/L (98-108); Estimated Glomerular Filt Rate 25; Glucose 184 mg/dL (70-99); Osmolality Calculated 301 mOsm/kg (285-295); Phosphorus 3.4 mg/dL (2.6-4.7); Potassium 3.3 mmol/L (3.5-5.1); Sodium 140 mmol/L (136-145)
[2022-05-21 14:07] LABS: Parathyroid Intact 106 pg/mL (14-64)
[2022-05-22 03:57] LABS: Complement C3 119 mg/dL (83-193)
[2022-05-24 07:28] LABS: Complement Total CH50 >60 U/mL (31-60); Kappa\\Lambda Light Chains 1.68 (0.26-1.65); Lambda Light Chain 29.5 mg/L (5.7-26.3)
== END 2022-05-18 09:25 | disposition home or self-care (01) ==
LOC: CHSLAB 09:26
PROVIDERS: PCP Internal Medicine; Visit Provider Internal Medicine Nephrology
DX: N18.32 Chronic kidney disease, stage 3b (principal); N39.0 Urinary tract infection, site not specified
CPT/HCPCS: 36415; 80069; 81001; 82570; 83883; 83970; 84156; 85025; 85652; 86038; 86160; 86162; 86334; 87086; 87088

== ENCOUNTER 2022-05-20 09:55 | Outpatient (CLI) | payer MEDICARE, SELFPAY ==
[2022-05-26 12:41] LABS: Albumin 25 %; Measured Lambda Chains 3.71 mg/dL (<2.00); Pro/Creat Ratio 379 mg/g creat (<=114); Total Kappa Chains 24.2 mg/24 h; Total Lambda Chains 7.42 mg/24 h
[2022-05-28 16:53] LABS: Protein,total, 24 Hr Ur 178 mg/24h
[2022-05-28 16:54] LABS: Creat 24 Hr 0.47
== END 2022-05-20 09:56 | disposition home or self-care (01) ==
LOC: CHSLAB 09:56
PROVIDERS: PCP Internal Medicine; Visit Provider Internal Medicine Nephrology
DX: N18.32 Chronic kidney disease, stage 3b (principal); N39.0 Urinary tract infection, site not specified
CPT/HCPCS: 86335

== ENCOUNTER 2022-10-20 08:58 | Outpatient (CLI) | payer MEDICARE, SELFPAY ==
[2022-10-20 09:32] LABS: Total Protein Urine Random 21.9 mg/dL (0.0-11.9); Ur Ttl Prot Creatinine Ratio 0.36 mg/mg (0-0.20)
[2022-10-20 09:44] LABS: Albumin Level 3.7 g/dL (3.4-5.0); Anion Gap 5 mmol/L (8-16); Blood Urea Nitrogen 26 mg/dL (7-18); Calcium 8.7 mg/dL (8.5-10.1); Carbon Dioxide 30 mmol/L (21-32); Chloride 104 mmol/L (98-108); Estimated Glomerular Filt Rate 45; Glucose 126 mg/dL (70-99); Osmolality Calculated 294 mOsm/kg (285-295); Phosphorus 3.7 mg/dL (2.6-4.7); Potassium 4.1 mmol/L (3.5-5.1); Sodium 139 mmol/L (136-145)
[2022-10-20 09:45] LABS: White Blood Count 4.1 K/mm3 (4.8-10.8)
[2022-10-20 09:46] LABS: Hematocrit 38.9 % (35.0-42.0); Hemoglobin 12.8 g/dL (11.7-13.8); Immature Granulocyte Percent A 0.2 % (0.0-0.0); Mean Corpuscular HGB Conc 32.9 g/dL (32.0-36.0); Mean Corpuscular Hemoglobin 30.3 pg (27.0-31.0); Mean Corpuscular Volume 92.2 fL (78.0-102.0); Mean Platelet Volume 11.8 fl (9.2-11.8); Platelet Count Result 166 K/mm3 (150-420); Red Blood Count 4.22 M/mm3 (4.20-5.40); Red Cell Distribution Width 12.6 % (11.6-14.4)
[2022-10-20 09:47] LABS: Basophils Absolute Auto 0.03 K/mm3 (0.00-0.10); Basophils Percent Auto 0.7 % (0.0-1.0); Eosinophils Absolute Auto 0.07 K/mm3 (0.02-0.50); Eosinophils Percent Auto 1.7 % (1.0-6.0); Immature Granulocyte Absolute 0.01 K/mm3 (0.00-0.00); Lymphocytes Absolute Auto 1.23 K/mm3 (1.10-4.50); Lymphocytes Percent Auto 30.1 % (18.0-42.0); Monocytes Absolute Auto 0.35 K/mm3 (0.10-0.90); Monocytes Percent Auto 8.6 % (2.0-11.0); Neutrophils Absolute Auto 2.4 K/mm3 (1.7-7.2); Neutrophils Percent Auto 58.7 % (50.0-70.0)
[2022-10-22 20:19] LABS: Parathyroid Intact 51 pg/mL (14-64)
== END 2022-10-20 08:59 | disposition home or self-care (01) ==
LOC: CHSLAB 09:00
PROVIDERS: PCP Family Medicine; Visit Provider Internal Medicine Nephrology
DX: N18.32 Chronic kidney disease, stage 3b (principal)
CPT/HCPCS: 36415; 80069; 82570; 83970; 84156; 85025

== ENCOUNTER 2023-01-25 08:57 | Outpatient (CLI) | payer MEDICARE, MEDICAID, SELFPAY ==
[2023-01-25 09:29] LABS: Hematocrit 41.7 % (35.0-42.0); Hemoglobin 14.2 g/dL (11.7-13.8); Mean Corpuscular HGB Conc 34.1 g/dL (32.0-36.0); Mean Corpuscular Hemoglobin 31.1 pg (27.0-31.0); Mean Corpuscular Volume 91.2 fL (78.0-102.0); Mean Platelet Volume 12.2 fl (9.2-11.8); Platelet Count Result 169 K/mm3 (150-420); Red Blood Count 4.57 M/mm3 (4.20-5.40); Red Cell Distribution Width 11.7 % (11.6-14.4); White Blood Count 5.8 K/mm3 (4.8-10.8)
[2023-01-25 09:44] LABS: Creatinine Urine 74.77 mg/dL (40-278); Total Protein Urine Random 48.5 mg/dL (0.0-11.9); Ur Ttl Prot Creatinine Ratio 0.65 mg/mg (0-0.20)
[2023-01-25 10:01] LABS: Albumin Level 3.7 g/dL (3.4-5.0); Anion Gap 10 mmol/L (8-16); Blood Urea Nitrogen 21 mg/dL (7-18); Calcium 9.2 mg/dL (8.5-10.1); Carbon Dioxide 28 mmol/L (21-32); Chloride 101 mmol/L (98-108); Estimated Glomerular Filt Rate 48; Glucose 212 mg/dL (70-99); Osmolality Calculated 297 mOsm/kg (285-295); Phosphorus 3.3 mg/dL (2.6-4.7); Potassium 4.6 mmol/L (3.5-5.1); Sodium 139 mmol/L (136-145)
[2023-01-30 17:12] LABS: Parathyroid Intact 41 pg/mL (14-64)
[2023-01-31 08:45] LABS: Renin 1.43 ng/mL/h (0.25-5.82)
[2023-02-01 09:42] LABS: Metanephrine, Free <25 pg/mL (<=57); Normetanephrine, Free 154 pg/mL (<=148); Total, Free (MN + NMN) 154 pg/mL (<=205)
== END 2023-01-25 08:58 | disposition home or self-care (01) ==
LOC: CHSLAB 09:05
PROVIDERS: PCP Family Medicine; Visit Provider Internal Medicine Nephrology
DX: N18.32 Chronic kidney disease, stage 3b (principal); I10 Essential (primary) hypertension
CPT/HCPCS: 36415; 80069; 82088; 82570; 83835; 83970; 84156; 84244; 85027

== ENCOUNTER 2023-01-26 08:19 | Outpatient (CLI) | payer MEDICARE, MEDICAID, SELFPAY | END 2023-01-26 08:20 | disposition home or self-care (01) | LOC: CHSLAB 08:21 | PROVIDERS: PCP Family Medicine; Visit Provider Internal Medicine Nephrology | DX: I10 Essential (primary) hypertension (principal); N18.32 Chronic kidney disease, stage 3b | CPT/HCPCS: 82530; 83835 ==

== ENCOUNTER 2023-03-07 08:51 | Outpatient (CLI) | payer MEDICARE, MEDICAID, SELFPAY ==
[2023-03-07 10:18] LABS: Albumin Level 3.5 g/dL (3.4-5.0); Anion Gap 6 mmol/L (8-16); Blood Urea Nitrogen 36 mg/dL (7-18); Calcium 8.6 mg/dL (8.5-10.1); Carbon Dioxide 29 mmol/L (21-32); Chloride 104 mmol/L (98-108); Estimated Glomerular Filt Rate 38; Glucose 139 mg/dL (70-99); Osmolality Calculated 298 mOsm/kg (285-295); Phosphorus 3.4 mg/dL (2.6-4.7); Sodium 139 mmol/L (136-145)
== END 2023-03-07 08:52 | disposition home or self-care (01) ==
LOC: CHSLAB 08:53
PROVIDERS: PCP Family Medicine; Visit Provider Internal Medicine Nephrology
DX: N18.32 Chronic kidney disease, stage 3b (principal)
CPT/HCPCS: 36415; 80069

== ENCOUNTER 2023-03-25 08:45 | Outpatient (CLI) | payer MEDICARE, MEDICAID, SELFPAY ==
[2023-03-25 09:14] LABS: Total Protein Urine Random 124.5 mg/dL (0.0-11.9); Ur Ttl Prot Creatinine Ratio 1.31 mg/mg (0-0.20)
[2023-03-25 09:32] LABS: Albumin Level 3.7 g/dL (3.4-5.0); Anion Gap 10 mmol/L (8-16); Blood Urea Nitrogen 26 mg/dL (7-18); Carbon Dioxide 26 mmol/L (21-32); Chloride 102 mmol/L (98-108); Estimated Glomerular Filt Rate 31; Glucose 178 mg/dL (70-99); Osmolality Calculated 294 mOsm/kg (285-295); Phosphorus 3.8 mg/dL (2.6-4.7); Potassium 4.5 mmol/L (3.5-5.1); Sodium 138 mmol/L (136-145)
== END 2023-03-25 08:46 | disposition home or self-care (01) ==
PROVIDERS: PCP Family Medicine; Visit Provider Internal Medicine Nephrology
DX: N18.32 Chronic kidney disease, stage 3b (principal)
CPT/HCPCS: 36415; 80069; 82570; 84156

== ENCOUNTER 2023-08-24 08:57 | Outpatient (CLI) | payer MEDICARE, MEDICAID, SELFPAY ==
[2023-08-24 09:15] LABS: Hematocrit 43.2 % (35.0-42.0); Hemoglobin 14.8 g/dL (11.7-13.8); Mean Corpuscular HGB Conc 34.3 g/dL (32.0-36.0); Mean Corpuscular Hemoglobin 31.6 pg (27.0-31.0); Mean Corpuscular Volume 92.1 fL (78.0-102.0); Mean Platelet Volume 11.3 fl (9.2-11.8); Platelet Count Result 186 K/mm3 (150-420); Red Blood Count 4.69 M/mm3 (4.20-5.40); Red Cell Distribution Width 13.2 % (11.6-14.4); White Blood Count 6.9 K/mm3 (4.8-10.8)
[2023-08-24 09:26] LABS: Creatinine Urine 156.34 mg/dL (40-278); Total Protein Urine Random 149.7 mg/dL (0.0-11.9); Ur Ttl Prot Creatinine Ratio 0.96 mg/mg (0-0.20)
[2023-08-24 09:37] LABS: Albumin Level 3.7 g/dL (3.4-5.0); Anion Gap 11 mmol/L (8-16); Blood Urea Nitrogen 30 mg/dL (7-18); Calcium 9.2 mg/dL (8.5-10.1); Carbon Dioxide 24 mmol/L (21-32); Chloride 101 mmol/L (98-108); Estimated Glomerular Filt Rate 31; Glucose 174 mg/dL (70-99); Osmolality Calculated 292 mOsm/kg (285-295); Phosphorus 3.7 mg/dL (2.6-4.7); Potassium 4.3 mmol/L (3.5-5.1); Sodium 136 mmol/L (136-145)
[2023-08-28 21:57] LABS: Parathyroid Intact 48 pg/mL (14-64)
== END 2023-08-24 08:58 | disposition home or self-care (01) ==
LOC: CHSLAB 08:59
PROVIDERS: PCP Family Medicine; Visit Provider Internal Medicine Nephrology
DX: N18.32 Chronic kidney disease, stage 3b (principal); I10 Essential (primary) hypertension
CPT/HCPCS: 36415; 80069; 82570; 83970; 84156; 85027

== ENCOUNTER 2024-04-09 08:59 | Outpatient (CLI) | payer MEDICARE, MEDICAID, SELFPAY ==
[2024-04-09 09:19] LABS: Hematocrit 43.1 % (35.0-42.0); Hemoglobin 14.4 g/dL (11.7-13.8); Mean Corpuscular HGB Conc 33.4 g/dL (32-36); Mean Corpuscular Hemoglobin 30.7 pg (27.0-31.0); Mean Corpuscular Volume 91.9 fL (78.0-102.0); Mean Platelet Volume 11.9 fl (9.2-11.8); Platelet Count Result 175 K/mm3 (150-420); Red Blood Count 4.69 M/mm3 (4.20-5.40); Red Cell Distribution Width 12.4 % (11.6-14.4); White Blood Count 7.2 K/mm3 (4.8-10.8)
[2024-04-09 09:28] LABS: Creatinine Urine 92.45 mg/dL (40-278); Ur Ttl Prot Creatinine Ratio 1.49 mg/mg (0-0.20)
[2024-04-09 09:56] LABS: Albumin Level 3.7 g/dL (3.4-5.0); Anion Gap 9 mmol/L (4-12); Blood Urea Nitrogen 17 mg/dL (7-18); Calcium 8.7 mg/dL (8.5-10.1); Carbon Dioxide 26 mmol/L (21-32); Chloride 104 mmol/L (98-108); Estimated Glomerular Filt Rate 37; Glucose 152 mg/dL (70-99); Osmolality Calculated 292 mOsm/kg (285-295); Phosphorus 3.2 mg/dL (2.6-4.7); Potassium 3.8 mmol/L (3.5-5.1); Sodium 139 mmol/L (136-145)
[2024-04-10 12:04] LABS: Parathyroid Intact 63 pg/mL (16-77)
== END 2024-04-09 09:00 | disposition home or self-care (01) ==
LOC: CHSLAB 09:04
PROVIDERS: PCP Internal Medicine Nephrology; Visit Provider Internal Medicine Nephrology
DX: N18.32 Chronic kidney disease, stage 3b (principal); I10 Essential (primary) hypertension
CPT/HCPCS: 36415; 80069; 82570; 83970; 84156; 85027

== ENCOUNTER 2024-10-08 08:46 | Outpatient (CLI) | payer MEDICARE, SELFPAY ==
[2024-10-08 09:12] LABS: Mean Corpuscular HGB Conc 34.1 g/dL (32-36); Mean Corpuscular Hemoglobin 30.6 pg (27.0-31.0); Mean Corpuscular Volume 89.7 fL (78.0-102.0); Mean Platelet Volume 11.9 fl (9.2-11.8); Platelet Count Result 176 K/mm3 (150-420); Red Blood Count 4.57 M/mm3 (4.20-5.40); Red Cell Distribution Width 11.8 % (11.6-14.4); White Blood Count 6.4 K/mm3 (4.8-10.8)
[2024-10-08 09:19] LABS: Creatinine Urine 69.61 mg/dL (40-278); Total Protein Urine Random 56.8 mg/dL (0.0-11.9); Ur Ttl Prot Creatinine Ratio 0.82 mg/mg (0-0.20)
[2024-10-08 09:40] LABS: Albumin Level 3.3 g/dL (3.4-5.0); Anion Gap 11 mmol/L (4-12); Blood Urea Nitrogen 18 mg/dL (7-18); Carbon Dioxide 27 mmol/L (21-32); Chloride 101 mmol/L (98-108); Estimated Glomerular Filt Rate 42; Glucose 132 mg/dL (70-99); Osmolality Calculated 291 mOsm/kg (285-295); Phosphorus 3.6 mg/dL (2.6-4.7); Potassium 3.8 mmol/L (3.5-5.1); Sodium 139 mmol/L (136-145)
[2024-10-09 13:48] LABS: Parathyroid Intact 66 pg/mL (16-77)
--- OUTSIDE RECORDS SUMMARY | 2024-10-15 22:15 | XMS_ITS ---
Author Organization Unknown Address [address] [place] [phone] Phone Care Team Providers Care Mineral Wool Insulation Supervisor Name Role Phone MELANY Fernandez Attending Unavailable [facility] INTAKE TECHNICIAN Unavailable ABHI Velasquez Primary Unavailable Immunization Immunization Date Status Additional Notes Code Code System Pneumococcal conjugate PCV 13 03/01/2022 Completed 133 CVX Influenza, split virus, trivalent, preservative 07/17/2022 Completed 141 CVX Influenza, high-dose, quadrivalent, PF 07/29/2022 Completed 197 CVX COVID-19, mRNA, LNP-S, PF, 3 0 mcg/0.3 mL dose 03/23/2021 Completed 208 CVX COVID-19, mRNA, LNP-S, PF, 3 0 mcg/0.3 mL dose 04/13/2021 Completed 208 CVX Results BEDSIDE GLUCOSE - Collect Da te/Time: 01/26/2024 09:32 [facility] ID: [id number] [place] [address], [phone] LOINC: 03680-0 Test Value Unit Reference Range Code Code System Flag BEDSIDE GLUCOSE 118 mg/dl L=74 H=106 23147-4 LOINC H BEDSIDE GLUCOSE - Collect Da te/Time: 01/26/2024 07:19 [facility] ID: [id number] [place] [address], [phone] LOINC: 41337-1 Test Value Unit Reference Range Code Code System Flag BEDSIDE GLUCOSE 131 mg/dl L=74 H=106 31882-2 LOINC H Social History Type Status Start Date End Date Code Code Syst em Sex Female Vital Signs Vital Sign Value Unit [place] Value [place] Unit Date/Time Recent/Initial? Code Code System Body Mass Index 32.04 kg/m2 01/26/2024 07:14 Most Recent 28156 -5 LOINC Body Mass Index 30.60 kg/m2 12/15/2023 10:20 Initial 47011 -5 INC Systolic Blood Pressure 118 mm[Hg] 01/26/2024 07:14 Initial 8480- 6 LOINC Diastolic Blood Pressure 56 mm[Hg] 01/26/2024 07:14 Initial 8462- 4 INC Body Surface Area 1.89 m2 01/26/2024 07:14 Most Recent 3140- 1 INC Body Surface Area 1.84 m2 12/15/2023 10:20 Initial 3140- 1 LOINC Height 158.750 0 cm 62.50 in 01/26/2024 07:14 Most Recent 8302- 2 LOINC Height 158.750 0 cm 62.50 in 12/15/2023 10:20 Initial 8302- 2 INC O2 Saturation 98 % 2023 07:14 Initial 93183 -5 INC Pulse 75.0 /min 01/26/2024 07:14 Initial 8867- 4 INC Respiration 13 /min 01/26/20 07:14 Initial 9279- 1 INC Temperature 36.2 Marge 97.1 F 01/26/20 07:14 Initial 8310- 5 INC Weight 80.74 kg 178.00 lbs 01/26/2024 07:14 Most Recent 14404 -7 INC Weight 77.11 kg 170.00 lbs 12/15/2023 10:20 Initial 61774 -7 [facility] Medications Medication Start Date End Date Route Frequency Dose Code Code System Medication Instructions Home Meds Aspirin 81MG Oral Tablet, Enteric Coated 01/26/2024 Unknown ORAL ONCE A DAY 81 MILLIGRAMS 516918 RxNorm TAKE 81 MILLIGRAMS ORAL ONCE A DAY Crestor 40MG Oral Tablet 01/26/2024 Unknown ORAL AT BEDTIME 40 MILLIGRAMS 199128 RxNorm TAKE 40 MILLIGRAMS ORAL AT BEDTIME Farxiga 5MG Oral Tablet 01/26/2024 Unknown ORAL ONCE A DAY 5 MILLIGRAMS 5471176 RxNorm TAKE 5 MILLIGRAMS ORAL ONCE A DAY Isosorbide Mononitrate 30MG Oral Tablet, Extended Release 01/26/2024 Unknown ORAL ONCE A DAY 30 MILLIGRAMS 286171 RxNorm TAKE 30 MILLIGRAMS ORAL ONCE A DAY Latanoprost 0.005% Ophthalmic Solution 01/26/2024 Unknown OPHTHALM IC ONCE A DAY 1 unit(s) 738688 RxNorm 1 EACH OPHTHALMIC ONCE A DAY Lisinopril 5MG Oral Tablet 01/26/2024 Unknown ORAL ONCE A DAY 5 MILLIGRAMS 308681 RxNorm TAKE 5 MILLIGRAMS ORAL ONCE A DAY Omeprazole 20 MG Oral Tablet, Delayed Release 01/26/2024 Unknown ORAL ONCE A DAY 20 MG RxNorm TAKE 20 MG ORAL ONCE A DAY Ozempic 0.25 MG or 0.5 MG Doses 2 MG/3 ML Subcutaneou s Solution 01/26/2024 Unknown SUBCUTAN EOUS ONCE A WEEK 1 unit(s) 4331031 RxNorm INJECT INTO 1 EACH SUBCUTANEOUS ONCE A WEEK Stool Softener 100MG Oral Tablet 01/26/2024 Unknown ORAL NEEDED 2 CAPSULE 6775477 RxNorm TAKE 2 CAPSULE ORAL NEEDED Tylenol PM Extra Strength 500MG-25MG Oral Tablet 01/26/2024 Unknown ORAL AT BEDTIME 3 TABLET 4096449 RxNorm TAKE 3 TABLET ORAL AT BEDTIME amLODIPine Besylate 5MG Oral Tablet 01/26/2024 Unknown ORAL ONCE A DAY 5 MILLIGRAMS 557365 RxNorm TAKE 5 MILLIGRAMS ORAL ONCE A DAY Hospital Discharge Instructions Should you have any questions prior to discharge, please contact a member of your healthcare team. If you have left the hospital and have any questions, please contact your primary care physician. Reason For Referral No Data Found Procedures Procedure Name Date Status Code Code Syste m Colonoscopy, flexible; with removal of tumor(s), polyp(s), or other lesion 01/26/2024 completed 83505 CPT Anesthesia for lower intesti nal endoscopic procedures, endoscope introduce 01/26/2024 completed 43938 CPT Replacement of both knee joints completed 4444 19530 SNOMEDCT REPAIR ROTATOR CUFF ACUTE completed 96329829 SNOMEDCT Hysterectomy completed 552862951 SNOMEDCT History of tonsillectomy completed 768650969 SNOMEDCT APPENDECTOMY completed 08813959 SNOMEDCT Allergies and Adverse Reactions Allergy Substance Reaction Severity Start Date Concern Status Co de Code System NITROMIST Active 217559 RxNorm Plan of Treatment Colonoscopy 01/26/2024 Encounters Encounter Diagnosis Start Date Code Code Sys tem Encounter for screening for malignant neoplasm of colo n 01/26/2024 SNOMED-CT Personal Care Team Section Performer Name Performer Role Active Date Inactive SUGEY Campbell PCP - Primary care physician 2023-12-19
== END 2024-10-08 08:47 | disposition home or self-care (01) ==
LOC: CHSLAB 08:53
PROVIDERS: PCP Family Medicine; Visit Provider Internal Medicine Nephrology
DX: N18.32 Chronic kidney disease, stage 3b (principal); D64.9 Anemia, unspecified
CPT/HCPCS: 36415; 80069; 82570; 83970; 84156; 85027

== ENCOUNTER 2025-01-10 13:29 | Outpatient (CLI) | payer MEDICARE, SELFPAY ==
--- NOTE | ~2025-01-10 | CT_ITS ---
EXAMINATION: CT abdomen pelvis wo con DATE: 01/10/2025 13:48 INDICATION: Chronic kidney disease, stage IIIB. Left adrenal mass. TECHNIQUE: Computed tomography (CT) of the abdomen and pelvis was performed without intravenous contr ast. Automated exposure control and iterative reconstruction technique were employed. The dose-length product was 421.08 mGy-cm. COMPARISON: CT abdomen and pelvis 04/25/2022 FINDINGS: The visualized portions of the lung bases demonstrate chronic peripheral septal thickening. No pleural effusion. The heart size is normal. There are coronary artery calcifications. No pericard ial effusion. Calcifications in the liver and spleen are consistent with old granulomatous disease. T he gallbladder and spleen are normal. There are masses in the adrenal glands measuring up to 14 mm on the left measuring soft tissue attenuation without change in size, likely adenomas. The kidneys are normal. There are widespread arterial calcifications. There is diverticulosis of the colon without ev idence of diverticulitis. There are no dilated loops of bowel. The appendix is not visualized. There are no pathologically enlarged lymph nodes. There is no free intraperitoneal fluid. There is severe l ower lumbar spondylosis. IMPRESSION: 1. Chronic bilateral adrenal masses, likely adenomas. 2. Mild chronic interstitial lung disease. Reviewed, dictated and finalized at location A.
== END 2025-01-10 13:30 | disposition home or self-care (01) ==
PROVIDERS: PCP Family Medicine; Visit Provider Internal Medicine Nephrology
DX: N18.32 Chronic kidney disease, stage 3b (principal); D35.01 Benign neoplasm of right adrenal gland; D35.02 Benign neoplasm of left adrenal gland; J84.9 Interstitial pulmonary disease, unspecified
CPT/HCPCS: 74176

== ENCOUNTER 2025-03-06 12:12 | Outpatient (CLI) | payer MEDICARE, SELFPAY ==
--- NOTE | ~2025-03-06 | DEXA_ITS ---
Bone Density Report Name: GENNA VALLEJO Age: 69 Sex: Female Ethnicity: White Date of : 1955 Indication: osteopenia; parental hip fracture; Referring Provider: Erika, Jarrett Study: Bone densitometry was performed. Exam Date: March 06, 2025 Accession number: [id number] Bone Density: Region BMD T-score Z-score Classification AP Spine(L1-L4) 1.021 -0.2 1.9 Normal Femoral Neck (Left) 0.723 -1.1 0.6 Osteopenia Total Hip (Left) 0.768 -1.4 0.1 Osteopenia Femoral Neck (Right) 0.649 -1.8 0.0 Osteopenia Total Hip (Right) 0.788 -1.3 0.2 Osteopenia Femoral Neck Mean 0.686 -1.5 0.3 Osteopenia Total Hip Mean 0.778 -1.3 0.2 Osteopenia World Health Organization criteria for BMD impression classify patients as: Normal (T-score at or above -1.0), Osteopenia (T-score between -1.0 and -2.5), or Osteoporosis (T-score at or below -2.5). 10-year Fracture Risk(1): Major Osteoporotic Fracture 16% Hip Fracture 3.3% Reported Risk Factors: [place] (), Neck BMD=0.649, BMI=32.3, parental fracture (1) FRAX(R) Version 3.08. Fracture probability calculated for an untreated patient. Fracture probability may be lower if the patient has received treatment. Previous Exams: Region Exam Age BMD T-score BMD Change BMD Change Date g/cm2 vs Baseline vs Previous AP Spine (L1-L4) 03/06/2025 69 1.021 -0.2 -0.077 (-7.0%) -0.077 (-7.0%) 03/11/2022 66 1.098 0.5 Total Hip(Left) 03/06/2025 69 0.768 -1.4 -0.058 (-7.0%) -0.058 (-7.0%) 03/11/2022 66 0.825 -1.0 Total Hip(Right) 03/06/2025 69 0.788 -1.3 -0.020 (-2.4%) -0.020 (-2.4%) 03/11/2022 66 0.808 -1.1 *Denotes significance at 95% confidence level, LSC for AP Spine = 0.022 g/cm2, LSC for Total Hip = 0.027 g/cm2 Clinical Information Provided by Patient: Parent has had a hip fracture Patient maximum height was 62.5 Menopause Age: 50 No regular weight bearing exercise Does not regularly consume dairy products Drinks caffeinated beverages Onset of menses at age 11 Number of children 2 Impression: The patient has low bone mass, based on the Right Femoral Neck T-score. The patient has risk factors, including: parental hip fracture. The BMD for the AP Spine (L1-L4) decreased, changing by -7.0% since the last DXA exam. The BMD for the Total Hip(Left) decreased, changing by -7.0% since the last DXA exam. Discussion: BONE DENSITY IS LOW AT ONE OR MORE SKELETAL SITES. This patient's lowest T-score is low at one or more skeletal sites. It meets the World Health Organization's (WHO) criteria for ?low bone mass? (T-score between -1.0 and -2.5). The patient's 10-year risk of fracture as calculated by FRAX is less than the threshold where pharmacological therapy is recommended by the National Osteoporosis Foundation (NOF). However, all treatment decisions require clinical judgment and consideration of individual patient factors, including patient preferences, comorbidities, previous drug use, risk factors not captured in the FRAX model (e.g., frailty, falls, vitamin D deficiency, increased bone turnover, interval significant decline in bone density) and possible under or overestimation of fracture risk by FRAX. The patient should follow a healthful lifestyle (good nutrition with adequate calcium and vitamin D, and appropriate weight-bearing exercise). Follow-Up: Consider repeating this study in 2 years to reassess this patient's status, or sooner if there is some new clinical indication. Reported by: ORLANDO on 03/06/2025 12:38:00 PM. Reviewed, dictated and finalized at location A.
--- NOTE | ~2025-03-06 | MM_ITS ---
EXAMINATION: MM screening pancho BI w dahlia HISTORY: Screening TECHNIQUE: Craniocaudal and mediolateral oblique 3-D tomosynthesis images were obtained and synthetic 2-D images were generated. CAD analysis was submitted and interpreted. COMPARISON: Comparison to multiple prior studies sequentially, with oldest reviewed study dated 04/2015. BREAST PARENCHYMAL COMPOSITION: Not dense: There are scattered areas of fibroglandular density. FINDINGS: There is no evidence of suspicious mass, calcification, or architectural distortion to sugg est malignancy in either breast. There has been no suspicious interval change. IMPRESSION: 1. No mammographic evidence of malignancy. 2. Recommend routine screening mammography in one year. BI-RADS Category 1: Negative Reviewed, dictated and finalized at location B.
--- OUTSIDE RECORDS SUMMARY | 2025-03-06 12:17 | XMS_ITS ---
Author Organization Unknown Address [address] [place] [phone] Phone Care Team Providers Care Retail Mortgage Banker Name Role Phone MELANY Fernandez Attending Unavailable JOSE [employer] Unavailable ABHI Velasquez Primary Unavailable Immunization Immunization [...] GLUCOSE - Collect Da te/Time: 01/26/2024 09:32 [facility] [id number] [place] [address], [phone] LOINC: 83508-8 Test Value Unit Reference Range Code Code System Flag BEDSIDE GLUCOSE 118 mg/dl L=74 H=106 43602-8 LOINC H BEDSIDE GLUCOSE - Collect Da te/Time: 01/26/2024 07:19 [facility] [id number] [address] [place] [address], [phone] LOINC: 44317-4 Test Value Unit Reference Range Code Code System Flag BEDSIDE GLUCOSE 131 mg/dl L=74 H=106 81640-8 LOINC H Social History Type Status Start Date End Date Code Code Syst em Sex Female Vital Signs Vital Sign Value Unit [place] Value [place] Unit Date/Time Recent/Initial? Code Code System Body Mass Index 32.04 kg/m2 01/26/2024 07:14 Most Recent 68860 -5 [facility] Body Mass Index 30.60 kg/m2 12/15/2023 10:20 Initial 59666 -5 INC Systolic Blood Pressure 118 mm[Hg] 01/26/2024 07:14 Initial 8480- 6 INC Diastolic Blood Pressure 56 mm[Hg] 01/26/2024 07:14 Initial 8462- 4 INC Body Surface Area 1.89 m2 01/26/2024 07:14 Most Recent 3140- 1 INC Body Surface Area 1.84 m2 12/15/2023 10:20 Initial 3140- 1 LOINC Height 158.750 0 cm 62.50 in 01/26/2024 07:14 Most Recent 8302- 2 INC Height 158.750 0 cm 62.50 in 12/15/2023 10:20 Initial 8302- 2 INC O2 Saturation 98 % 2023 07:14 Initial 88328 -5 INC Pulse 75.0 /min 01/26/2024 07:14 Initial 8867- 4 INC Respiration 13 /min 01/26/20 07:14 Initial 9279- 1 INC Temperature 36.2 Marge 97.1 F 01/26/20 07:14 Initial 8310- 5 INC Weight 80.74 kg 178.00 lbs 01/26/2024 07:14 Most Recent 73166 -7 [facility] Weight 77.11 kg 170.00 lbs 12/15/2023 10:20 Initial 95181 -7 [facility] Medications Medication Start Date End Date Route Frequency Dose Code Code System Medication Instructions Home Meds Aspirin 81MG Oral Tablet, Enteric Coated 01/26/2024 Unknown ORAL ONCE A DAY 81 MILLIGRAMS 000398 RxNorm TAKE 81 MILLIGRAMS ORAL ONCE A DAY Crestor 40MG Oral Tablet 01/26/2024 Unknown ORAL AT BEDTIME 40 MILLIGRAMS 965375 RxNorm TAKE 40 MILLIGRAMS ORAL AT BEDTIME Farxiga 5MG Oral Tablet 01/26/2024 Unknown ORAL ONCE A DAY 5 MILLIGRAMS 5632944 RxNorm TAKE 5 MILLIGRAMS ORAL ONCE A DAY Isosorbide Mononitrate 30MG Oral Tablet, Extended Release 01/26/2024 Unknown ORAL ONCE A DAY 30 MILLIGRAMS 323037 RxNorm TAKE 30 MILLIGRAMS ORAL ONCE A DAY Latanoprost 0.005% Ophthalmic Solution 01/26/2024 Unknown OPHTHALM IC ONCE A DAY 1 unit(s) 056456 RxNorm 1 EACH OPHTHALMIC ONCE A DAY Lisinopril 5MG Oral Tablet 01/26/2024 Unknown ORAL ONCE A DAY 5 MILLIGRAMS 158427 RxNorm TAKE 5 MILLIGRAMS ORAL ONCE A DAY Omeprazole 20 MG Oral Tablet, Delayed Release 01/26/2024 Unknown ORAL ONCE A DAY 20 MG RxNorm TAKE 20 MG ORAL ONCE A DAY Ozempic 0.25 MG or 0.5 MG Doses 2 MG/3 ML Subcutaneou s Solution 01/26/2024 Unknown SUBCUTAN EOUS ONCE A WEEK 1 unit(s) 3311690 RxNorm INJECT INTO 1 EACH SUBCUTANEOUS ONCE A WEEK Stool Softener 100MG Oral Tablet 01/26/2024 Unknown ORAL NEEDED 2 CAPSULE 5377921 RxNorm TAKE 2 CAPSULE ORAL NEEDED Tylenol PM Extra Strength 500MG-25MG Oral Tablet 01/26/2024 Unknown ORAL AT BEDTIME 3 TABLET 6178797 RxNorm TAKE 3 TABLET ORAL AT BEDTIME amLODIPine Besylate 5MG Oral Tablet 01/26/2024 Unknown ORAL ONCE A DAY 5 MILLIGRAMS 406401 RxNorm TAKE 5 MILLIGRAMS ORAL ONCE A DAY Hospital Discharge Instructions Should you have any questions prior to discharge, please contact a member of your healthcare team. If you have left the hospital and have any questions, please contact your primary care physician. Reason For Referral No Data Found Procedures Procedure Name Date Status Code Code Syste m Replacement of both knee joints completed 4444 76760 SNOMEDCT APPENDECTOMY completed 42126270 SNOMEDCT History of tonsillectomy completed 489338635 SNOMEDCT REPAIR ROTATOR CUFF ACUTE completed 31007506 SNOMEDCT Colonoscopy, flexible; with removal of tumor(s), polyp(s), or other lesion 01/26/2024 completed 68090 CPT Hysterectomy completed 956059472 SNOMEDCT Anesthesia for lower intesti nal endoscopic procedures, endoscope introduce 01/26/2024 completed 47257 CPT Allergies and Adverse Reactions Allergy Substance Reaction Severity Start Date Concern Status Co de Code System NITROMIST Active 987547 RxNorm Plan of Treatment Colonoscopy 01/26/2024 Encounters Encounter Diagnosis Start Date Code Code Sys tem Encounter for screening for malignant neoplasm of colo n 01/26/2024 SNOMED-CT Personal Care Team Section Performer Name Performer Role Active Date Inactive SUGEY Campbell PCP - Primary care physician 2023-12-19
--- OUTSIDE RECORDS SUMMARY | 2025-03-06 12:17 | XMS_ITS | Clinical Summary ---
Author Organization [facility] Address [address] [address] Phone Care Team Providers Care Cassandra Architect Name Role Phone Emerson Hemphill MD Primary Care Provider Allergies Active Allergy Reactions Criticality Noted Date Comments Nitroglycerin Dizziness 05/12/2021 Medications aspirin (ST MICHAEL) 81 MG EC tablet Take 81 mg by mouth daily Active cilostazol (PLETAL) 50 MG tablet Take 50 mg by mouth 2 times daily Active gabapentin (NEURONTIN) 300 MG capsule Take 300 mg by mouth once daily as needed Active OneTouch Ultra test strip 11/09/2021 Active isosorbide mononitrate (IMDUR) 30 MG 24 hr tablet Take 30 mg by mouth daily 04/19/2019 Active losartan (COZAAR) 25 MG tablet 11/10/2021 Active Mirabegron ER 25 MG tablet sustained-releas e 24 hour Take 25 mg by mouth daily Active potassium chloride (K-TAB) 20 MEQ CR tablet 09/15/2021 Ac tive rosuvastatin (CRESTOR) 40 MG tablet Take 40 mg by mouth daily 05/19/2021 Active Ozempic, 0.25 or 0.5 MG/DOSE, 2 MG/1.5ML solution pen-injector 11/10/2021 Active venlafaxine (EFFEXOR) 75 MG tablet Take 150 mg by mouth 2 times daily 05/18/2017 Active amLODIPine (NORVASC) 5 MG tablet Take 5 mg by mouth 1 (one) time each day 04/30/2022 Active magnesium oxide 400 (240 Mg) MG tablet Take 1 tablet by mouth 1 (one) time each day 04/30/2022 Active ondansetron ODT (ZOFRAN-ODT) 4 MG dispersible tablet Take 4 mg by mouth every 8 (eight) hours 04/23/2022 Active Active Problems Problem Noted Date Diagnosed Date Acute kidney failure 05/06/2022 Diabetic - good control 11/16/2021 Adrenal mass 06/02/2017 Coronary atherosclerosis 08/10/2016 Overview (11/12/2021): Known prior stents x 2 Essential (primary) hypertension 08/10/2016 Mixed hyperlipidemia 08/10/2016 Immunizations Immunization Administration Dates Next Due Pneumococcal Conjugate 12/15/2021 Social History Tobacco Use Types Packs/Day Years Used Date Smoking Tobacco: Never Smokeless Tobacco: Never Alcohol Use Standard Drinks/Week Comments Not Currently 0 (1 standard drink = 0.6 oz pur e alcohol) Comments Unknown Sex and Gender Information Value Date Recorded Sex Assigned at Not on file Legal Sex Female 10:39 AM [facility] Gender Identity Not on file Sexual Orientation Not on file Last Filed Vital Signs Vital Sign Reading Time Taken Comments Blood Pressure 122/80 05/13/2022 10:52 AM CDT Pulse 72 05/13/2022 10:52 AM CDT Temperature 36.5 C (97.7 F) 05/13/2022 10:52 AM CDT Respiratory Rate - - Oxygen Saturation - - Inhaled Oxygen Concentration - - Weight 72.6 kg (160 lb) 05/13/2022 10:52 AM CDT Height 157.5 cm (5' 2 ) 05/13/2022 10:52 AM CDT Body Mass Index 29.26 05/13/2022 10:52 AM CDT Plan of Treatment Health Maintenance Due Date Last Done Comments Pneumococcal PPSV23/PCV13 65 + Years / Low and Medium Risk (1 of 4 - PCV) 2005 Influenza Vaccine (Season Ended) 2025 Insurance [employer] MEDICARE Care Teams Cassandra Architect Relationship Specialty Start Date End Date Emerson Hemphill MD [address] [place] [id number] PCP - General 08/05/22
== END 2025-03-06 12:13 | disposition home or self-care (01) ==
LOC: CHSIMG 12:15
PROVIDERS: PCP Family Medicine; Visit Provider Family Medicine
DX: Z12.31 Encounter for screening mammogram for malignant neoplasm of breast (principal); Z78.0 Asymptomatic menopausal state; M85.89 Other specified disorders of bone density and structure, multiple sites
CPT/HCPCS: 77063; 77067; 77080

== ENCOUNTER 2025-05-28 12:33 | Outpatient (CLI) | payer MEDICARE, SELFPAY ==
--- NOTE | 2025-05-28 12:38 | ECHO_ITS ---
Patient Info Name: Federica Bradford Age: 70 years : 1955 Gender: Female Ht: 62 in Wt: 157 lbs BSA: 1.79 m2 HR: 78 bpm BP: 137 / 78 mmHg Heart Rhythm: Sinus Rhythm Technical Quality: Fair Exam Date: 05/28/2025 12:56 PM Patient Status: O Admit Date: 05/28/2025 Exam Type: CA echo doppler color flow Complete two-dimensional, color flow and Doppler transthoracic echocardiogram is performed. Pricer: Jinny Pereira Summary 1. Complete two-dimensional, color flow and Doppler transthoracic echocardiogram is performed. 2. Left ventricular chamber dimension is normal. 3. Left ventricular systolic function is normal, estimated at 60-65. 4. The left ventricular diastolic function is grade I diastolic dysfunction. 5. E/e' 6 is not elevated. 6. Left atrial chamber dimension is mildly enlarged. 7. There is trace aortic valve regurgitation. 8. There is trace mitral valve regurgitation. 9. There is mild tricuspid valve regurgitation. 10. No pulmonary hypertension, estimated pulmonary arterial systolic pressure is 24 mmHg. Left Ventricle E/e' 6 is not elevated. Left ventricular chamber dimension is normal. Left ventricular systolic function is normal, estimated at 60-65. The left ventricular diastolic function is grade I diastolic dysfunction. Right Ventricle Right ventricular chamber dimension is normal. Right ventricular systolic function is normal. Left Atria Left atrial chamber dimension is mildly enlarged. Right Atria Right atrial chamber dimension is normal. Aortic Valve The aortic valve is trileaflet. There is no aortic valve stenosis. There is trace aortic valve regurgitation. Pulmonic Valve There is no pulmonic regurgitation. Mitral Valve There is no mitral valve stenosis. There is trace mitral valve regurgitation. Tricuspid Valve There is mild tricuspid valve regurgitation. No pulmonary hypertension, estimated pulmonary arterial systolic pressure is 24 mmHg. Pericardium/Pleural There is no pericardial effusion. Inferior Vena Cava Normal inferior vena cava with >50% collapse upon inspiration consistent with normal right atrial pressure, 5 mmHg. Aorta The aortic root size at the sinus of Valsalva is normal. Left Ventricular Outflow Tract Name Value Normal LVOT 2D LVOT Diameter 2.0 cm LVOT Doppler LVOT Peak Velocity 99 cm/s LVOT Peak Gradient 4 mmHg LVOT Mean Gradient 3 mmHg LVOT VTI 21 cm LVOT VTI/AV VTI Ratio 0.7 LVOT Stroke Volume 64 ml LVOT CO 4.3 l/min LVOT CI 2.4 l/min/m2 Mitral Valve Name Value Normal MV Diastolic Function MV E Peak Velocity 55 cm/s MV A Peak Velocity 67 cm/s MV E/A 0.8 MV Decel Time (PW) 261 ms MV Annular TDI MV E/e' (Septal) 10.5 MV E/e' (Lateral) 4.9 MV E/e' (Average) 7.7 Tricuspid Valve Name Value Normal TV Regurgitation Doppler TR Peak Velocity 217 cm/s TR Peak Gradient 19 mmHg Estimated PAP/RSVP RA Pressure 5 mmHg <=5 PA Systolic Pressure 24 mmHg <36 RV Systolic Pressure 24 mmHg <36 TV Annular TDI TV Lateral Payton s' Velocity 6.2 cm/s >=9.5 Aorta Name Value Normal Ascending Aorta Ao Root Diameter (MM) 3.3 cm Ao Root Diam Index (MM) 1.9 cm/m2 Aortic Valve Name Value Normal AV Doppler AV Peak Velocity 174 cm/s AV Peak Gradient 12 mmHg AV Mean Gradient 6 mmHg AV VTI 31 cm AV Area (Cont Eq VTI) 2.0 cm2 >=3.0 AV Area (Cont Eq Trey) 1.8 cm2 AV DI (Trey) 0.57 AV Regurgitation 2D LVOT Area 3.1 cm2 Ventricles Name Value Normal LV Dimensions 2D/MM IVS Diastolic Thickness (2D) 0.9 cm 0.6-1.0 LVID Diastole (2D) 5.0 cm 3.8-5.2 LVIW Diastolic Thickness (2D) 0.8 cm 0.6-0.9 LVID Systole (2D) 3.0 cm 2.2-3.5 LVOT Diameter 2.0 cm LV Mass (2D Cubed) 157.33 g 67.00-162.00 LV Mass Index (2D Cubed) 88 g/m2 43-95 Relative Wall Thickness (2D) 0.33 <=0.42 LV Fractional Shortening/Ejection Fraction 2D/MM LV Fractional Shortening (2D) 41 % 27-45 LV EF (2D Teichholz) 71 % LV Diastolic Volume (4C MOD) 61 ml LV EF (4C MOD) 68 % LV Diastolic Volume (2C MOD) 44 ml LV EF (2C MOD) 74 % LV Diastolic Volume (BP MOD) 54 ml 46-106 LV Diastolic Volume Index (BP MOD) 30 ml/m2 29-61 LV Systolic Volume (BP MOD) 15 ml 14-42 LV Systolic Volume Index (BP MOD) 8 ml/m2 8-24 LV EF (BP MOD) 72 % 54-74 LV Diastolic Length (4C) 7.5 cm LV Systolic Length (4C) 5.5 cm LV Stroke Volume (4C MOD) 42 ml Atria Name Value Normal LA Dimensions LA Dimension (MM) 3.9 cm 2.7-3.8 LA Volume (4C A-L) 45 ml LA Volume (BP A-L) 47 ml RA Dimensions RA Systolic Major Carbon Length (4C) 5.2 cm 2.2-2.8 RA Area (4C) 11.5 cm2 <=18.0 Report Signatures
--- OUTSIDE RECORDS SUMMARY | 2025-05-28 12:50 | XMS_ITS | Clinical Summary ---
Author Organization [facility] Address [address], [place] [address] Phone Care Team Providers Care Coffin Maker Name Role Phone Emerson Hemphill MD Primary [...] file Legal Sex Female 10:39 AM [facility] Gender Identity Not on file Sexual Orientation [...] 10:52 AM CDT Height 157.5 cm (5' 2) 05/13/2022 10:52 AM CDT Body Mass Index 29.26 05/13/2022 10:52 AM CDT Plan of Treatment Health Maintenance Due Date Last Done Comments Pneumococcal PPSV23/PCV13 65 + Years / Low and Medium Risk (1 of 2 - PCV) 2005 Influenza Vaccine (#1) 2025 Insurance [employer] MEDICARE Care Teams Coffin Maker Relationship Specialty Start Date End Date Emerson Hemphill MD [address] [place] [id number] PCP - General 08/05/22
--- OUTSIDE RECORDS SUMMARY | 2025-05-28 12:51 | XMS_ITS | Patient Health Record ---
Author Organization [facility] Address [address] [place], [place] [id number] Care Team Providers Care Senior Manufacturing Test Engineer Name Role Phone ANYA HERNANDEZ Unavailable [phone] Stephan Ahn Unavailable Unavailable Reason For Referral No Information Plan Of Treatment No Information Insurance Providers Payer Name Payer Address Payer Phone Subscriber Number Group Number Insured Name Patient Relationship to Insured Coverage Start Date Coverage End Date Medicare Part B [place] [address] [place] [phone] [id number] GENNA VALLEJO Self - patient is the insured
--- OUTSIDE RECORDS SUMMARY | 2025-05-28 12:51 | XMS_ITS | Patient Health Record ---
Author Organization [facility] Address [address] [place] [address] Support Name Relationship Address Phone GENNA VALLEJO Guarantor Unknown [phone] Reason For Referral No Information Plan Of Treatment No Information
== END 2025-05-28 12:34 | disposition home or self-care (01) ==
LOC: CHSIMG 12:34
PROVIDERS: PCP Family Medicine
DX: I25.119 Atherosclerotic heart disease of native coronary artery with unspecified angina pectoris (principal); I10 Essential (primary) hypertension; I07.1 Rheumatic tricuspid insufficiency
CPT/HCPCS: 93306

== ENCOUNTER 2025-06-20 08:56 | Outpatient (CLI) | payer MEDICARE, SELFPAY ==
--- OUTSIDE RECORDS SUMMARY | 2013-05-09 08:54 | XMS_ITS | Continuity of Care Document ---
Author Organization [facility] Address [address] [place] [id number] Phone Care Team Providers Care Pipe Fitter Supervisor Maintenance Name Role Phone ED BEGUM MD Unavailable Unavailable Medications Medication Instructions Dosage Effective Dates (start - stop) Status Comments Vigamox 0.5 % Eye Drops instill 1 drop in the right eye 4 times a day starting 7 days prior to surgery - Active ketorolac 0.4 % Eye Drops instill 1 drop in the right eye 4 times a day starting 7 days prior to surgery - Active oxybutynin chloride 5 mg tablet take 1 tablet (5MG) by oral route 2 times every day 5 MG - Active glipizide 5 mg tablet - Active metformin 1,000 mg tablet - Active Bystolic 5 mg tablet - Active Cymbalta 20 mg capsule,delayed release - Active aspirin 81 mg chewable tablet - Active simvastatin 40 mg tablet - Active Effient 10 mg tablet - Active Diovan 80 mg tablet - Active Procedures Procedure Date POSTOP FOLLOW-UP VISIT POSTOP FOLLOW-UP VISIT CATARACT SURGERY, COMPLEX OPHTHALMIC BIOMETRY EYE EXAM & TREATMENT Used E-Scribe For All Rx's EYE EXAM, NEW PATIENT Doc meds verified w/pt or re TOBACCO NON-USER DIL RETINA EXAM INTERP REV OPHTHALMIC BIOMETRY Advance Directives Directive Yes / No Effective Date File Name No Information Encounters Encounter Description Practice Location Reason(s) For Visit Diagnoses Date Provider Providers Copied on Encounter [facility], [address], [place], [id number], [place] tel:[phone] [facility] No Information Apr-2 4201 3 [facility]. [address] [place] [address], [id number]. tel:[phone] [facility], [address] [place] [address], [id number], [place] tel:[phone] [facility] Lens replaced by other means Mar-1 8- 3 [facility]. [address] [place] [address], [id number]. tel:[phone] [facility], [address] [place] [address], [id number], [place] tel:[phone] [facility] Lens replaced by other means Onofre-0 7 3 [facility]. [address] [place] [address], [id number]. tel:[phone] [facility], [address] [place] [address], [id number], [place] tel:[phone] [facility] No Information Mar-0 6-201 3 [facility]. [address] [place] [address], [id number]. tel:[phone] [facility], [address] [place] [address], [id number], [place] tel:[phone] [facility] Total or mature cataractDiabetes Mellitus Type 2, Uncomplicated Jan-2 4 3 [facility]. [address] [place] [address], [id number]. tel:[phone] [facility], [address] [place] [address], [id number], [place] tel:[phone] [facility] No Information 2 2 [facility]. [address] [place] [address], [id number]. tel:[phone] [facility], [address] [place] [address], [id number], [place] tel:[phone] [facility] No Information 201 2 SHY WARD. [address] [facility], [place], [place], [id number]. tel:[phone] Family History Family Member Type Diagnosis Age At Onset Mother Problem (finding) cataracts, diabetes Payers Payer name Insurance type Covered libertarian ID Avel costello(s) [place] [id number] Social History Type Description Quantity Date Captured Comments Sex Female Smoking Status No Information Chief Complaint And Reason For Visit No Information Reason For Referral Reason For Referral No Information History Of Present Illness Encounter Date Complaint History Of Prese nt Illness No Information Functional Status Date Functional Assessmen t No Information Instructions Date Instruction Additional Infor morena POD 11 s/p phaco/PC IOL OD with ECCE convert and AVx, for brunescent cataract. - Educational materials provided: or verbally educated - emphasized compliance; Vig QID till gone; resume Ketorolac QID till gone; PRed increase to q 1hour, to use shield at night - EtOH pads to skin, to help tape stick. 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 - Educational materials provided: or verbally educated - diabetes control to prevent retinopathy Related to Diabetes Mellitus Type 2, Uncomplicated Mature cataract OD - Educational materials provided: or verbally educated - AAO cataract surgery handout, RBAQ discussed for cataract surgery with lens implant, including higher risk of complications, longer surgery, given the density of the cataract. IOL Master done. Patient agrees to surgery. 7 days prior to surgery to start Ket+oflox QID OD, after also Pred Acet 1% QID OD. Additional risks of diabetic retinopathy and edema discussed w/ pre existing diabetes. To match OS, planned implant for OD is [id number] 22.0, MN60 21.0, [id number] 18.5. B-scan to be done prior to surgery with Retina. Surgery with retrobulbar block, Trypan Blue, possible extracap conversion. Related to Total or mature cataract - Post op Related to Total or mature cataract Assessments Type Assessment Date No Information Patient Care Teams Name Effective Dates (start - stop) Status Members No Information
--- OUTSIDE RECORDS SUMMARY | 2025-06-20 09:14 | XMS_ITS | Patient Health Record ---
Author Organization [facility] Address [address] [place], [place] [id number] Care Team Providers Care Manager Art Name Role Phone ANYA HERNANDEZ Unavailable [phone] Stephan Ahn Unavailable Unavailable Reason For Referral No Information Plan Of Treatment No Information Insurance Providers Payer Name Payer Address Payer Phone Subscriber Number Group Number Insured Name Patient Relationship to Insured Coverage Start Date Coverage End Date Medicare Part B [place] [address] [place] [phone] [id number] GENNA VALLEJO Self - patient is the insured
--- OUTSIDE RECORDS SUMMARY | 2025-06-20 09:14 | XMS_ITS | Patient Health Record ---
Author Organization [facility] Address [address] [place] [address] Support Name Relationship Address Phone GENNA VALLEJO Guarantor Unknown [phone] Reason For Referral No Information Plan Of Treatment No Information
--- OUTSIDE RECORDS SUMMARY | 2025-06-20 09:14 | XMS_ITS | Clinical Summary ---
Author Organization [facility] Address [address] [address] Phone Care Team Providers Care Senior National Account Manager Name Role Phone Emerson Hemphill MD Primary [...] on file Legal Sex Female 10:39 AM [facility] Gender Identity Not on file Sexual [...] 2025 Insurance [employer] MEDICARE Care Teams Senior National Account Manager Relationship Specialty Start Date End Date Emerson Hemphill MD [address] [place] [address] PCP - General 08/05/22
[2025-06-20 09:15] LABS: Hematocrit 46.1 % (35.0-42.0); Hemoglobin 15.1 g/dL (11.7-13.8); Mean Corpuscular HGB Conc 32.8 g/dL (32-36); Mean Corpuscular Hemoglobin 29.9 pg (27.0-31.0); Mean Corpuscular Volume 91.3 fL (78.0-102.0); Platelet Count Result 184 K/mm3 (150-420); Red Blood Count 5.05 M/mm3 (4.20-5.40); White Blood Count 5.7 K/mm3 (4.8-10.8)
[2025-06-20 09:47] LABS: Albumin Level 4.3 g/dL (3.5-5.1); Anion Gap 11 mmol/L (4-12); Blood Urea Nitrogen 18 mg/dL (7-17); Calcium 9.9 mg/dL (8.4-10.2); Carbon Dioxide 26 mmol/L (22-30); Chloride 104 mmol/L (98-107); Estimated Glomerular Filt Rate 51; Glucose 157 mg/dL (65-110); Osmolality Calculated 296 mOsm/kg (285-295); Potassium 4.9 mmol/L (3.4-5.0); Sodium 141 mmol/L (137-145); Total Protein Urine Random 34 mg/dL; Ur Ttl Prot Creatinine Ratio 0.57 mg/mg (0-0.20)
== END 2025-06-20 08:57 | disposition home or self-care (01) ==
LOC: CHSLAB 09:00
PROVIDERS: PCP Family Medicine; Visit Provider Internal Medicine Nephrology
DX: N18.32 Chronic kidney disease, stage 3b (principal); D35.00 Benign neoplasm of unspecified adrenal gland; I15.2 Hypertension secondary to endocrine disorders; E11.59 Type 2 diabetes mellitus with other circulatory complications
CPT/HCPCS: 36415; 80069; 82570; 83970; 84156; 85027

== ENCOUNTER 2025-07-17 13:45 | Outpatient (RCR) | payer MEDICARE, SELFPAY ==
--- NOTE | 2025-06-10 10:00 | PTOPEVAL1 ---
Assessment and note entered by Jeremiah Rosado Evaluation Information Assessment Status Evaluation ICD-10 Condition Codes (PT) Pain in left knee M25.562 Onset 05/10/25 Subjective Information Pt. reports that she started developing left knee pain about 1 month ago. She reports that she underwent left knee replacement in 2019. She reports that she went to the doctor and she was told that the entire left knee has shifted. She describes pain all around the left knee. She states that the pain has also been going into her left hip as well. She describes pain that shoots from the groin to the hip. She reports that she is currently using a cane and can only stand for about 1 minute before having to sit. She reports that she no longer does her own community activities. She states that she relies on public transportation to get to her appointments. She states that the doctor anticipates her requiring surgery on the left knee. She reports that her goal is to decrease her left knee pain. Reported Pain Level Pain Score 9: Self Report Assessment PT Clinical Summary Pt. is a 70 year old female who enters the clinic with left knee pain. She presents with impaired gait, impaired balance, impaired endurance, impaired left knee mobility and generalized l.e. weakness. Continued skilled PT is indicated in order to improve these areas to allow the pt. to achieve improved comfort with all IADL performance . Plan of Care Interventions Electrical Stimulation,Gait Training,Hot Pack/Cold Pack,Manual Therapy,Neuro Re-education,Patient/ Caregiver Education,Therapeutic Activities, Therapeutic Exercise PT Services Indicated Yes Treatment Frequency and 3x/week x 12 visits Duration These treatments will address the objective and functional deficits as defined above. The patient will be advanced safely and appropriately in order for the patient to progress towards his/her prior level of function. Additional exercises will be introduced and as well as a comprehensive home exercise program upon discharge, if needed, ?to ensure carryover of functional gains achieved in the clinic. This treatment plan has been reviewed and agreement upon by the patient.
--- NOTE | 2025-06-21 14:05 | PCPTNOTE ---
No call, no show.
--- NOTE | 2025-06-28 11:19 | PCPTNOTE ---
Cancelled session. Reports she does not have a ride.
--- NOTE | 2025-07-10 15:27 | OPREHPOC ---
Outpatient Therapy Plan of Care This is a Multidisciplinary Plan of Care that may contain components documented by all disciplines (PT, OT, and ST.) PT Problem 1 PT Problem #1 Knowledge Deficit PT Goal 1 Goal / Goal Update Pt. will be independent with a HEP focusing on strength and mobility tenriism Target Visit 2 Progress Met PT Problem 2 PT Problem #2 Impaired Range of Motion PT Goal 1 Goal / Goal Update Pt. will present with 5-125 degrees left knee AROM -met for flexion but not for extension Target Visit 8 Progress Partially Met PT Problem 3 PT Problem #3 Impaired Gait PT Goal 1 Goal / Goal Update Pt. will complete the 6 minute walk test with distance of 800' indicating improve gait efficiency. Target Visit 12 Progress Not Met PT Problem 4 PT Problem #4 Impaired Balance PT Goal 1 Goal / Goal Update Pt. will improve her Tinetti score to 21 or greater indicating improved safety with IADL's Target Visit 12 Progress Not Met
--- NOTE | 2025-07-10 15:27 | PTOPPROG ---
Assessment and note entered by Ivonne Meza, PT Evaluation Information Assessment Status Progress ICD-10 Condition Codes (PT) Pain in left knee M25.562 Onset 05/10/25 Subjective Information Pt reports her knee has gotten a lot better with PT. She has not had any pain this week at home or at PT and she's been able to do her exercises without pain afterward, which she used to have a lot of pain after exercise. She does still have pain with stair climbing which she needs to do in order to get to her basement to do laundry, but she reports she feels improved overall and thinks she could live with her knee being out of alignment if it stays relatively pain-free like it has been. Assessment PT Clinical Summary Mrs. Bradford has attended 10 skilled PT visits for L knee pain. She demonstrates slight improvements in L knee extension AROM and has met her goal for knee flexion AROM. She continues to demonstrate balance deficits such as occasional toe catching and losses of balance when ambulating, and is high fall risk per Tinetti. She also demonstrates deficits in ambulation efficiency and has not met her goal for 6MWT. She will benefit from continued skilled PT intervention to continue making progress in knee extension AROM, balance and ambulation to improve safety and functional independence. Plan of Care Interventions Electrical Stimulation,Gait Training,Hot Pack/Cold Pack,Manual Therapy,Neuro Re-education,Patient/ Caregiver Education,Therapeutic Activities, Therapeutic Exercise PT Services Indicated Yes Treatment Frequency and Continue per POC Duration These treatments will address the objective and functional deficits as defined above. The patient will be advanced safely and appropriately in order for the patient to progress towards his/her prior level of function. Additional exercises will be introduced and as well as a comprehensive home exercise program upon discharge, if needed, ?to ensure carryover of functional gains achieved in the clinic. This treatment plan has been reviewed and agreement upon by the patient.
--- NOTE | 2025-07-17 14:43 | OPREHPOC ---
Outpatient Therapy Plan of Care This is a Multidisciplinary Plan of Care that may contain components documented by all disciplines (PT, OT, and ST.) PT Problem 1 PT Problem #1 Knowledge Deficit PT Goal 1 Goal / Goal Update Pt. will be independent with a HEP focusing on strength and mobility protestant Target Visit 2 Progress Met PT Problem 2 PT Problem #2 Impaired Range of Motion PT Goal 1 Goal / Goal Update Pt. will present with 5-125 degrees left knee AROM -met for flexion but not for extension Target Visit 8 Progress Partially Met PT Problem 3 PT Problem #3 Impaired Gait PT Goal 1 Goal / Goal Update Pt. will complete the 6 minute walk test with distance of 800' indicating improve gait efficiency. Target Visit 12 Progress Not Met PT Problem 4 PT Problem #4 Impaired Balance PT Goal 1 Goal / Goal Update Pt. will improve her Tinetti score to 21 or greater indicating improved safety with IADL's Target Visit 12 Progress Met
--- NOTE | 2025-07-17 14:43 | PTOPDC ---
Assessment and note entered by Ivonne Meza, PT Evaluation Information Assessment Status Discharge ICD-10 Condition Codes (PT) Pain in left knee M25.562 Onset 05/10/25 Subjective Information Federica denies knee pain today. She has continued doing her exercises at home without difficulty, and she's able to get around her house and go up/ down steps without difficulty. She feels like her knee is manageable at this time and feels ready to discharge today. Reported Pain Level Pain Score 0: Self Report Assessment PT Clinical Summary Mrs. Bradford has attended 12 skilled PT visits for L knee pain. Since beginnging PT her pain has reduced and she currently has no pain. She is able to navigate her home and climb up/down steps using her cane independently. She does get L hip pain with exercises but overall her knee is pain- free. She has been independent with her HEP and while she has not fully met her goals addressing L knee ROM and ambulation, she feels confident in continuing her HEP on her own to make further progress. Therefore she will be discharged from skilled PT this date and referred her to our fall prevention class 2x/week. Plan of Care PT Services Indicated No
== END 2025-07-17 15:36 | disposition home or self-care (01) ==
LOC: CHSPT 13:45
DX: M25.562 Pain in left knee (principal)
CPT/HCPCS: 97014; 97110; 97112; 97150; 97161; G0283